=== PATIENT | female | born 1940 | race Two or more races ===

== ENCOUNTER 2016-04-28 12:09 | Inpatient (IN) | payer MEDICARE, MEDICAID ==
[2016-04-28 12:46] VITALS: BP 107/61
[2016-04-28 13:02] LABS: HEMATOCRIT 35.1 % (35.0-45.0)
[2016-04-28 13:05] LABS: MEAN CORPUSCULAR HEMOGLOBIN 36.1 pg (27.0-31.0); MEAN CORPUSCULAR HGB CONC 34.2 pg (28.0-36.0); PLATELET COUNT 116 Th/cmm (150-400); RED BLOOD COUNT 3.33 Mil/cmm (3.80-5.20); RED CELL DISTRIBUTION WIDTH 18.8 % (11.5-20.0)
--- NOTE | 2016-04-28 13:06 | Diagnostic Imaging Report ---
Portable chest x-ray HISTORY: Pain The overall heart size is difficult to assess with portable technique in a poor inspiration. No acute focal pulmonary processes. A vascular catheter tip extends into the region of the right atrium. IMPRESSION: 1. No acute focal prominent processes 2. Vascular catheter extending into the region of the right atrium.
--- NOTE | 2016-04-28 13:10 | ED Physician Chart ---
Chief Complaint/HPI - Patient Information Date Seen:: 04/28/16 Time Seen:: 13:00 Chief Complaint:: ABDOMINAL PAIN History of Present Illness:: THIS IS A CHRONICALLY ILL 76 YO FEMALE SENT [facility] FOR AN EVALUATION OF HER PERSISTENT ABDOMINAL PAIN. SHE HAS NOT BEEN VOMITING OR HAVING DIARRHEA. THE PATIENT HAS A HISTORY OF DIABETES, AORTIC ANEURYSM WITHOUT RUPTURE,BLADDER CANCER. Allergies:: Allergies Allergy/AdvReac Type Severity Reaction Status Date / Time No Known Allergies Allergy Verified 04/28/16 12:27 Vitals:: Vital Signs - 8 hr 04/28/16 04/28/16 12:46 12:47 Temp 97.9 F HR 108 RR 18 BP 107/61 107/61 O2 Sat % 96 Historian:: Medical Records Review:: Nurse's Note Reviewed Review of Systems - Review of Systems General/Constitutional: Fever (THE PATIENT IS UNABLE TO GIVE AN ACCURATE REVIEW OF SYSTEMS.), No fever, No chills, Weight loss, Weakness, No diaphoresis, No edema, No loss of appetite Skin: No skin lesions, No rash, No bruising Head: No headache, No light-headedness Eyes: No loss of vision, No pain, No diplopia ENT: No earache, No nasal drainage, No sore throat, No tinnitus Neck: No neck pain, No swelling, No thyromegaly, No stiffness, No mass noted Cardio Vascular: No chest pain, No palpitations, No PND, No orthopnea, No edema Pulmonary: No SOB, No cough, No sputum, No wheezing GI: No nausea, No vomiting, No diarrhea, No pain, No melena, No hematochezia, No constipation, No hematemesis G/U: No dysuria, No frequency, No hematuria Musculoskeletal: No bone or joint pain, No back pain, No muscle pain Endocrine: No polyuria, No polydipsia Psychiatric: No prior psych history, No depression, No anxiety, No suicidal ideation Hematopoietic: No bruising, No lymphadenopathy Allergic/Immuno: No urticaria, No angioedema Neurological: No syncope, No focal symptoms, No weakness, No paresthesia, No headache, No seizure, No dizziness, No confusion, No vertigo Past Medical History - Past Medical History Obtainable: Yes Past Medical History: HTN, DM, CAD, Asthma/COPD, PUD/GERD, Arthritis, Dementia Family History: None Social History: Non Smoker, No Alcohol, No Drug Use Surgical History: None Psychiatricy History: Dementia Medication: Reviewed Family Medical History - Family Member Maternal History Unknown: Yes Ethnicity: Mother History Unknown: Yes Ethnicity: Living Status: Unknown Physical Exam - Physical Examination General/Constitutional: Awake, Well-developed, well-nourished, Alert, No distress, GCS 15, Non-toxic appearing, Ambulatory Head: Atraumatic Eyes: Lids, conjuctiva normal, PERRL, EOMI Skin: Nl inspection, No rash, No skin lesions, No ecchymosis, Well hydrated, No lymphadenopathy ENMT: External ears, nose nl, Nasal exam nl, Lips, teeth, gums nl Neck: Nontender, Full ROM w/o pain, No JVD, No nuchal rigidity, No bruit, No mass, No stridor Respiratory: Nl effort/Exclusion, Clear to Auscultation, No Wheeze/Rhonchi/Rales Cardio Vascular: RRR, No murmur, gallop, rubs, NL S1 S2 GI: No tenderness/rebounding/guarding, No organomegaly, No hernia, Normal BS's, Nondistended, No mass/bruits, No McBurney tenderness : No CVA tenderness Extremities: No tenderness or effusion, Full ROM, normal strength in all extremities, No edema, Normal digits & nails Neuro/Psych: Alert/oriented, DTR's symmetric, Normal sensory exam, Normal motor strength, Judgement/insight normal, Mood normal, Normal gait, No focal deficits Misc: normal gait, Normal back, No paraspinal tenderness Labs/Radiology/EKG Results - Lab Results Results: Abnormal Lab Results 04/28/16 04/28/16 04/28/16 12:47 12:47 12:47 WBC 22.5 H* RBC 3.33 L Hgb 12.0 Hct 35.1 MCV 105.4 H MCH 36.1 H MCHC Differential 34.2 RDW 18.8 Plt Count 116 L MPV 9.0 PT 11.0 INR 1.10 PTT (Actin FS) 25.6 L Triglycerides 216 H Cholesterol 86 LDL Cholesterol Direct 19 L HDL Cholesterol 30 - Radiology Results Results: NO ACUTE DISEASE - EKG Interpretations EKG Time:: 13:00 Rhythm: NSR [place]: RIGHT AXIS Rate: 97 ED Septic Shock - . Is Septic Shock (SBP<90, OR Lactate>4 mmol\L) present?: No - <6hrs of presentation: Vital Signs: Vital Signs - 8 hr 04/28/16 04/28/16 12:46 12:47 Temp 97.9 F HR 108 RR 18 BP 107/61 107/61 O2 Sat % 96 Reassessment (Disposition) - Reassessment Reassessment Condition:: Unchanged - Diagnosis Diagnosis:: ABDOMINAL PAIN HYPOKALEMIA LEUCOCYTOSIS - Patient Disposition Admitting Medical Physician:: Gaby Mairee Condition at Disposition:: Unchanged
[2016-04-28 13:13] LABS: INR 1.1 (0.5-1.4)
[2016-04-28 13:14] LABS: MEAN CELL VOLUME 105.4 fl (81-100); WHITE BLOOD COUNT 22.5 Th/cmm (4.8-10.8)
[2016-04-28 13:17] LABS: ALKALINE PHOSPHATASE 79 U/L (34-104); ANION GAP 18.7 (7.0-16.0); BILIRUBIN,TOTAL 0.5 mg/dL (0.3-1.0); BUN - UREA NITROGEN 60 mg/dL (7-25); BUN/CREATININE RATIO 16.2; CALCIUM SERUM 8.2 mg/dL (8.6-10.3); CARBON DIOXIDE 21.8 mEq/L (21.0-31.0); CHLORIDE 101 mEq/L (98-107); CHOLESTEROL 86 mg/dL (<200); CREATININE - SERUM 3.7 mg/dL (0.6-1.2); GLUCOSE 43 mg/dL (70-105); SGOT 23 U/L (13-39); SGPT/ALT 17 U/L (7-52); SODIUM SERUM 139 mEq/L (136-145); TRIGLYCERIDES 216 mg/dL (<150)
[2016-04-28 13:26] LABS: POTASSIUM SERUM 2.5 mEq/L (3.5-5.1)
[2016-04-28] MEDS ORDERED: Potassium Chloride 20 mEq ER Tab PO ONE ×2 (13:31→13:38)
[2016-04-28 13:51] LABS: TOTAL CELLS COUNTED 100
[2016-04-28 13:52] LABS: BAND NEUTROPHILE 36 % (0-10); EOSINOPHIL 0 % (0-5); NEUTROPHILS 56 % (40-80); PLATELET ESTIMATE DECREASED PLATELETS (NORMAL); PLATELET MORPHOLOGY NORMAL (NORMAL)
[2016-04-28 13:53] LABS: ANISOCYTOSIS 1+; POLYCHROMASIA 3+
--- NOTE | 2016-04-28 15:27 | Diagnostic Imaging Report ---
CT scan abdomen and pelvis without intravenous contrast HISTORY: Pain Total DLP equals 262 CTDI equals 6.3 Axial sections were obtained from the xiphoid process down to the pubic symphysis. The exam demonstrates faint infiltrate in the left lower lobe along with pleural thickening. Changes may be chronic. However, pneumonia cannot be excluded. The liver appears generous in size. There is a dilated gallbladder with haziness about the gallbladder margins. Pericholecystic fluid cannot be excluded. If necessary, an ultrasound exam may provide additional assessment. Residual radiopaque contrast noted in the duodenum. The spleen appears normal. No focal abnormality seen within the pancreas. The right kidney appears normal. There is a decrease size of left kidney. There is aneurysmal dilatation of the abdominal aorta that extends from the level of the renal vasculature down to the level of the bifurcation. Maximum diameter equals 4.0 cm. Suggestion of intraluminal calcification that may be associated with segmental chronic dissection. The exam of the pelvis demonstrates preservation of normal fat planes. No abnormal masses or abnormal fluid collections. No definite abnormality seen in the region of the appendix. Evaluation of the bowel is limited due to the absence of oral/bowel contrast. Severe degenerative changes noted throughout the spine along with compression involving the body of L4. IMPRESSION: 1. Abdominal aortic aneurysm as described above with a maximum diameter of approximately 4.0 cm. Questionable changes chronic segmental dissection. Associated at the carotid vascular changes 2. Dilated gallbladder with questionable pericholecystic fluid. If necessary, an ultrasound exam may provide for further assessment 3. Diminished size of the left kidney 4. Compression fracture involving the body of L4 5. Infiltrate left lower lobe with pleural thickening in the left lower hemithorax. Findings may be chronic. Pneumonia cannot be excluded. Clinical correlation is needed.
[2016-04-28] MEDS ORDERED: INSULIN HUMAN REGULAR 100 UNITS/ML UNIT SUBQ ONE (18:55)
[2016-04-28] MEDS ORDERED: DARBEPOETIN ALFA IN POLYSORBAT 100 MCG IJ SCH (19:30)
[2016-04-28] MEDS ORDERED: INSULIN ASPART SLIDING SCALE 100 UNITS/ML UNIT SUBQ SCH (21:00)
[2016-04-28] MEDS: KCL 20mEq/100mL Premix 20 MEQ/100 ML PIGGYBACK IV SCH (21:16)
[2016-04-28] MEDS: metroNIDAZOLE 500mg/NS 100mL 500 MG/100 ML BAG IV SCH (22:56)
[2016-04-28] MEDS: Atorvastatin Calcium 10 MG TAB PO SCH (22:56)
[2016-04-28] MEDS ORDERED: GLUCAGON HCl 1 MG KIT IM PRN ×2 (23:05→23:20)
[2016-04-28] MEDS: Dextrose 50% 50 mL Abboject IVP PRN (23:16)
[2016-04-28] MEDS ORDERED: Dextrose 10% 1,000 ML IV SCH (23:30)
[2016-04-28] MEDS ORDERED: Dextrose 10% 1,000 ML IV ONE (23:40)
[2016-04-28] MEDS: Vancomycin HCL 250 mg /10mL UDC PO SCH (23:44)
[2016-04-29] MEDS: KCL 20mEq/100mL Premix 20 MEQ/100 ML PIGGYBACK IV SCH (01:56)
[2016-04-29] MEDS: Vancomycin HCL 250 mg /10mL UDC PO SCH ×3 (02:48→17:03)
[2016-04-29] MEDS ORDERED: Morphine Sulfate 2 mg/mL 1mL Syr IVP PRN (03:58)
[2016-04-29] MEDS ORDERED: Piperacillin Sodium/Tazobact 2.25 gm Vial IV ONE (04:54)
[2016-04-29] MEDS ORDERED: Piperacillin/Tazobact 2.25 gm in 0.9% NS 50 ML IV ONE (05:00)
[2016-04-29] MEDS: metroNIDAZOLE 500mg/NS 100mL 500 MG/100 ML BAG IV SCH ×3 (05:01→20:37)
[2016-04-29] MEDS ORDERED: Morphine Sulfate 2 mg/mL 1mL Syr IVP STA (07:45)
[2016-04-29] MEDS ORDERED: INSULIN ASPART SLIDING SCALE 100 UNITS/ML UNIT SUBQ SCH ×2 (08:15→11:30)
[2016-04-29 08:58] LABS: HEMOGLOBIN 10.8 gm/dL (11.7-16.1); MEAN CORPUSCULAR HEMOGLOBIN 35.9 pg (27.0-31.0); MEAN CORPUSCULAR HGB CONC 33.6 pg (28.0-36.0); MEAN PLATELET VOLUME 9.1 fl; RED CELL DISTRIBUTION WIDTH 19.5 % (11.5-20.0)
[2016-04-29] MEDS ORDERED: Pantoprazole 40 mg EC Tab PO SCH (09:00)
[2016-04-29] MEDS: NIFEdipine 30 mg ER Tab PO SCH ×2 (09:00→09:36)
[2016-04-29] MEDS ORDERED: Aspirin 81mg Chewable Tab PO SCH (09:00)
[2016-04-29 09:14] LABS: WHITE BLOOD COUNT 41.1 Th/cmm (4.8-10.8)
--- NOTE | 2016-04-29 09:29 | General Progress Note ---
Subjective - Review of Systems Service Date: 04/29/16 Subjective: consult dictated CT scan - dilated GB with pericholecystic fluid WBC high with bands PE tender RUQ plan: GB ultrasound Objective - Results Result Diagrams: 04/29/16 08:15 04/28/16 12:47 Recent Labs: Laboratory Last Values WBC 41.1 Th/cmm (4.8-10.8) H* D 04/29/16 08:15 RBC 3.00 Mil/cmm (3.80-5.20) L 04/29/16 08:15 Hgb 10.8 gm/dL (11.7-16.1) L 04/29/16 08:15 Hct 32.0 % (35.0-45.0) L 04/29/16 08:15 MCV 105.4 fl (81-100) H 04/28/16 12:47 MCH 35.9 pg (27.0-31.0) H 04/29/16 08:15 MCHC Differential 33.6 pg (28.0-36.0) 04/29/16 08:15 RDW 19.5 % (11.5-20.0) 04/29/16 08:15 Plt Count 116 Th/cmm (150-400) L 04/28/16 12:47 MPV 9.1 fl 04/29/16 08:15 Band Neutrophils % 36 % (0-10) H 04/28/16 12:47 Neutrophils (Manual) 56 % (40-80) 04/28/16 12:47 Lymphocytes 5 % (20-50) L 04/28/16 12:47 Monocytes 3 % (2-10) 04/28/16 12:47 Eosinophils 0 % (0-5) 04/28/16 12:47 Platelet Estimate DECREASED PLATELETS (NORMAL) 04/28/16 12:47 Platelet Morphology NORMAL (NORMAL) 04/28/16 12:47 Polychromasia 3+ 04/28/16 12:47 Anisocytosis 1+ 04/28/16 12:47 Macrocytosis 1+ 04/28/16 12:47 RBC Morph Micro Appear ABNORMAL (NORMAL) 04/28/16 12:47 PT 11.0 SECONDS (9.5-11.5) 04/28/16 12:47 INR 1.10 (0.5-1.4) 04/28/16 12:47 PTT (Actin FS) 25.6 SECONDS (26.0-38.0) L 04/28/16 12:47 Sodium 139 mEq/L (136-145) 04/28/16 12:47 Potassium 2.5 mEq/L (3.5-5.1) L* 04/28/16 12:47 Chloride 101 mEq/L (98-107) 04/28/16 12:47 Carbon Dioxide 21.8 mEq/L (21.0-31.0) 04/28/16 12:47 Anion Gap 18.7 (7.0-16.0) H 04/28/16 12:47 BUN 60 mg/dL (7-25) H 04/28/16 12:47 Creatinine 3.7 mg/dL (0.6-1.2) H 04/28/16 12:47 Est GFR ( Amer) TNP 04/28/16 12:47 Est GFR (Non-Af Amer) TNP 04/28/16 12:47 BUN/Creatinine Ratio 16.2 04/28/16 12:47 Glucose 294 mg/dL (70-105) H 04/28/16 23:16 POC Glucose 245 MG/DL (70 - 105) H 04/29/16 06:36 Hemoglobin A1c % 6.8 % (4.0-6.0) H 04/28/16 12:47 Calcium 8.2 mg/dL (8.6-10.3) L 04/28/16 12:47 Total Bilirubin 0.5 mg/dL (0.3-1.0) 04/28/16 12:47 AST 23 U/L (13-39) 04/28/16 12:47 ALT 17 U/L (7-52) 04/28/16 12:47 Alkaline Phosphatase 79 U/L (34-104) 04/28/16 12:47 Troponin I 0.21 ng/mL (0.01-0.05) H* 04/28/16 12:47 Total Protein 5.3 gm/dL (6.0-8.3) L 04/28/16 12:47 Albumin 2.7 gm/dL (3.7-5.3) L 04/28/16 12:47 Globulin 2.6 gm/dL 04/28/16 12:47 Albumin/Globulin Ratio 1.0 (1.0-1.8) 04/28/16 12:47 Triglycerides 216 mg/dL (<150) H 04/28/16 12:47 Cholesterol 86 mg/dL (<200) 04/28/16 12:47 LDL Cholesterol Direct 19 mg/dL (75-193) L 04/28/16 12:47 HDL Cholesterol 30 mg/dL (23-92) 04/28/16 12:47 TSH 1.28 uIU/ml (0.34-5.60) 04/28/16 12:47 - Physical Exam Vitals and I&O: Vital Signs Temp 97.8 F 04/29/16 04:00 Pulse 100 04/29/16 04:00 Resp 21 04/29/16 04:00 BP 122/64 04/29/16 04:00 Pulse Ox 96 04/29/16 06:00 Intake & Output 04/28/16 04/29/16 04/29/16 18:59 06:59 18:59 Intake Total 320 Output Total 1 Balance 319 Intake: Intake, IV Amount 200 KCL 20mEq/100mL Premix 20 100 meq In 100 ml @ 50 mls/ hr IV Q2H [facility] Rx#: [id number] metroNIDAZOLE 500mg/NS 100 100mL 500 mg In 100 ml @ 100 mls/hr IV Q8HR [facility] Rx #:[id number] Oral 120 Output: Stool 1 Other: # Voids 2 Stool Characteristics Liquid Black Green Active Medications: Current Medications Aspirin (Aspirin Chewable) 81 mg PO DAILY [facility] Stop: 06/28/16 08:59 Atorvastatin Calcium (Lipitor) 20 mg PO HS [facility] Stop: 06/27/16 20:59 Last Admin: 04/28/16 22:56 Dose: 20 mg Calcium Carbonate (Calcium Carb) 600 mg PO DAILY [facility] Stop: 06/28/16 08:59 Dextrose (D50w) 50 ml IVP PRN PRN PRN Reason: Blood Glucose less than 70 Stop: 06/27/16 23:04 Last Admin: 04/28/16 23:16 Dose: 50 ml Dextrose (Glutose 40%) 18.75 gm PO PRN PRN PRN Reason: Blood Glucose less than 70 Stop: 06/27/16 23:04 Epoetin Deo (Epogen) 5,000 units SUBQ TuThSa [facility] Stop: 06/28/16 09:29 Glucagon (Glucagen) 1 mg IM PRN PRN PRN Reason: HYPOGLYCEMIA Stop: 06/27/16 23:19 Last Admin: 04/28/16 23:39 Dose: 1 mg Metronidazole (Flagyl) 500 mg in 100 mls @ 100 mls/hr IV Q8HR [facility] Stop: 06/27/16 20:59 Last Admin: 04/29/16 05:01 Dose: 100 mls/hr Piperacillin Sod/Tazobactam (Sod 2.25 gm/ Sodium Chloride) 50 mls @ 100 mls/hr IV Q8HR [facility] Stop: 06/28/16 12:59 Dextrose/Sodium Chloride (D5-0.45ns) 1,000 mls @ 50 mls/hr IV .Q20H [facility] Stop: 06/28/16 07:58 Insulin Aspart (Novolog Insulin Sliding Scale) 0 units SUBQ Q4HR [facility] PRN Reason: Protocol Stop: 06/28/16 08:14 Metoprolol Tartrate (Lopressor) 25 mg PO HS [facility] Stop: 06/27/16 20:59 Last Admin: 04/28/16 22:57 Dose: Not Given Midodrine (Proamatine) 5 mg PO DAILY [facility] Stop: 06/28/16 08:59 Mirtazapine (Remeron) 15 mg PO HS [facility] PRN Reason: Protocol Stop: 06/27/16 20:59 Last Admin: 04/28/16 22:56 Dose: 15 mg Miscellaneous (Darbepoetin Deo In Polysorbat [Aranesp]) 100 mcg IJ QTHUR [facility] Stop: 06/27/16 19:29 Miscellaneous (Zosyn Iv Per Pharmacy) 1 ea [facility] PRN PRN PRN Reason: PROTOCOL Stop: 06/28/16 03:59 Morphine Sulfate (Morphine) 2 mg IVP Q3H PRN PRN Reason: Severe Pain Stop: 06/28/16 10:49 Nifedipine (Procardia Xl) 30 mg PO DAILY [facility] Stop: 06/28/16 08:59 Ondansetron HCl (Zofran) 4 mg IV Q4H PRN PRN Reason: Nausea / Vomiting Stop: 06/28/16 03:58 Pantoprazole Sodium (Protonix) 40 mg PO DAILY [facility] Stop: 06/28/16 08:59 Prednisone (Deltasone) 20 mg PO DAILY [facility] Stop: 06/28/16 08:59 Vancomycin HCl (Vancomycin Oral) 250 mg PO Q6HR [facility] Stop: 06/27/16 18:54 Last Admin: 04/29/16 02:48 Dose: 250 mg
[2016-04-29] MEDS ORDERED: Epoetin Alfa 20000 Units/mL Vial SUBQ SCH (09:30)
[2016-04-29 09:39] LABS: ANION GAP 27.2 (7.0-16.0); BUN - UREA NITROGEN 73 mg/dL (7-25); BUN/CREATININE RATIO 16.6; CALCIUM SERUM 7.7 mg/dL (8.6-10.3); CHLORIDE 105 mEq/L (98-107); GLUCOSE 218 mg/dL (70-105); SODIUM SERUM 138 mEq/L (136-145)
[2016-04-29] MEDS: D5-0.45NS 1,000 ML IV SCH (09:40)
--- NOTE | 2016-04-29 09:56 | Consultation ---
GASTROENTEROLOGY CONSULTATION REFERRING PHYSICIAN: Will Guillen M.D. REASON FOR CONSULTATION: Abdominal pain. HISTORY OF PRESENT ILLNESS: A 76-year-old female with a history of diabetes mellitus, bladder cancer, abdominal aortic aneurysm with possible chronic dissection admitted for lower abdominal pain from a custodial. There has been no witnessed nausea, vomiting or constipation. There was possibly some diarrhea. There may have been a history of C. diff colitis. The patient was started on broad spectrum antibiotics. PAST MEDICAL HISTORY: As above, also notable for end-stage renal disease, hemodialysis dependent, diabetes mellitus and bladder cancer. ALLERGIES: None. MEDICATIONS: Zosyn, Flagyl, baby aspirin, Lipitor, calcium, Lopressor, midodrine, Remeron, morphine p.r.n., Procardia, prednisone and oral vancomycin. SOCIAL HISTORY: [facility] resident. No known tobacco, alcohol or drugs. FAMILY HISTORY: Noncontributory. REVIEW OF SYSTEMS: A comprehensive 12-point review of system was conducted and is only positive for the signs and symptoms present in history of present illness. PHYSICAL EXAMINATION: VITAL SIGNS: Temperature of 97.8, blood pressure 122/64, pulse of 100, respirations 21, O2 sat 96%. GENERAL: The patient is well-developed elderly female in no acute distress. HEENT: Sclerae nonicteric. Oropharynx is clear. CARDIOVASCULAR: Regular rate and rhythm. LUNGS: Clear to auscultation bilaterally. ABDOMEN: Soft. Mild to moderate lower abdominal tenderness to palpation without rebound or guarding. No hepatomegaly is appreciated. EXTREMITIES: No clubbing, cyanosis or edema. RECTAL: Deferred. LABORATORY DATA AND IMAGING: WBC 22.5, hemoglobin 12, platelet count is 116. INR 1.0, creatinine 3.7. Liver enzymes normal. Troponin 0.2. TSH normal. CT of the abdomen and pelvis showing chronic changes, but nothing acute. Also, gallstones and abdominal aortic aneurysm identified without obvious rupture. ASSESSMENT: 1. Abdominal pain, rule out mesenteric ischemia versus abdominal aortic aneurysm versus symptomatic gallstones or cholecystitis versus colitis. 2. Abdominal aortic aneurysm with possible chronic dissection. 3. Leukocytosis, rule out sepsis. 4. Possible Clostridium difficile colitis. 5. History of diabetes mellitus, bladder cancer and end-stage renal disease, hemodialysis dependent. RECOMMENDATIONS: 1. Check stool C. diff. 2. Zosyn and Flagyl. 3. Probiotics. 4. Protonix and Zofran. 5. Follow up labs. 6. Pain control measures. 7. Check abdominal ultrasound. 8. Surgical evaluation. Thank you, Dr. Will Guillen for involving us in the care of your patient. Any further questions, please call us. JOB# [id number]
[2016-04-29 10:36] LABS: CARBON DIOXIDE 10.6 mEq/L (21.0-31.0)
[2016-04-29 10:37] LABS: CREATININE - SERUM 4.4 mg/dL (0.6-1.2)
[2016-04-29 10:38] LABS: POTASSIUM SERUM 4.8 mEq/L (3.5-5.1)
[2016-04-29] MEDS: Morphine Sulfate 2 mg/mL 1mL Syr IVP PRN ×2 (11:48→17:35)
[2016-04-29 11:49] LABS: PLATELET COUNT 50 Th/cmm (150-400)
[2016-04-29 11:53] LABS: BAND NEUTROPHILE 33 % (0-10); METAMYELOCYTE 6 % (0-0); MYELOCYTE 1 %; NEUTROPHILS 45 % (40-80); TOTAL CELLS COUNTED 100
[2016-04-29 11:54] LABS: ANISOCYTOSIS 1+; PLATELET ESTIMATE DECREASED PLATELETS (NORMAL); PLATELET MORPHOLOGY GIANT PLATELETS SEEN (NORMAL); POLYCHROMASIA 2+
[2016-04-29] MEDS: INSULIN ASPART SLIDING SCALE 100 UNITS/ML UNIT SUBQ SCH ×3 (12:00→20:34)
[2016-04-29] MEDS ORDERED: Piperacillin/Tazobact 2.25 gm in 0.9% NS 50 ML IV SCH (13:00)
--- NOTE | 2016-04-29 13:18 | Consultation ---
REFERRING PHYSICIAN: Will Guillen M.D. REASON FOR CONSULTATION: Abdominal pain. Thank you for referring this patient to me. HISTORY OF PRESENT ILLNESS: This is a 76-year-old female admitted through the Emergency Room because of abdominal pain. The patient claims she has no vomiting or diarrhea. On further questioning today, the patient claims that she has had pain in this region in the epigastric and right upper portion for several months. The veracity of this is not confirmed, however. PAST MEDICAL HISTORY: Includes hypertension, diabetes mellitus, coronary artery disease, COPD, GERD and dementia. LABORATORY STUDIES: On this admission shows WBC at 22,500, hemoglobin 12.0, platelet count slightly low at 116,000, bands 36%. The potassium is low at 2.5. BUN 60, creatinine 3.7. Hemoglobin A1c is slightly high at 6.8. Troponins elevated to 0.21. The triglycerides high at 216, cholesterol low at 86, LDL is 19, HDL is 30. The patient underwent a CT scan of the abdomen and pelvis and this shows 4 cm abdominal aortic aneurysm, which apparently has been there for some time, compression fracture at L4. There is a dilated gallbladder, questionable pericholecystic fluid. PHYSICAL EXAMINATION: GENERAL: The patient is awake, but information is difficult to assess. She is rather asthenic. ABDOMEN: There appears to be tenderness in the right upper quadrant. Abdomen appears to be tight and the abdominal aneurysm is not palpable. IMPRESSION: 1. Questionable calculus cholecystitis. 2. Abdominal aortic aneurysm, apparently stable in size and asymptomatic. 3. Elevated troponins, etiology to be determined. RECOMMENDATION AND PLAN: We will order ultrasound of the gallbladder and recommend treatment as needed. Thank you for this consultation. JOB# [id number]
[2016-04-29 13:28] LABS: MEAN CELL VOLUME 106.8 fl (81-100)
--- NOTE | 2016-04-29 14:05 | Consultation ---
Consult Note - Consult Note Service Date: 04/29/16 Consult Note: PHYSICIAN Consultation Note: Date of Admission: 04/28/16 Purpose of Consultation: Leukocytosis. Chief Complaint: abdominal pain, chronic, with History of Present Illness: Patient FRANCIE RAI was admitted to location Intensive Care Unit with SEPSIS. patient is 76 Y female with history of DM2, HTN, CAD, COPD, AAA, bladder ca presented to hospital for abdominal pain, which is chronic in nature. She has visited [facility] times recently and offered no intervention for her AAA, as she had been high risk for surgery. Now she has small wound in her right big toe distally, with cyanotic changes. O initial evaluation, her temperature was 97.9 degree F and WBC Count was 22,500 with 36% bands. Today, her WBC count went up to 41,100 with 33% bands. ID consult was called for further antibiotic management. Meanwhile sha was started on vanco IV and zosyn. CT scan of abdomen and pelvis revealed dilated GB with prericholecytic fluid, and pneumonia. Allergies Allergy/AdvReac Type Severity Reaction Status Date / Time No Known Allergies Allergy Verified 04/28/16 12:27 Vital Signs Temp 96.7 F 04/29/16 12:00 Pulse 92 04/29/16 12:00 Resp 18 04/29/16 12:00 BP 128/56 04/29/16 12:00 Pulse Ox 93 04/29/16 12:00 Intake & Output 04/28/16 04/29/16 04/29/16 18:59 06:59 18:59 Intake Total 420 Output Total 1 Balance 419 Intake: Intake, IV Amount 300 KCL 20mEq/100mL Premix 20 100 meq In 100 ml @ 50 mls/ hr IV Q2H PAULA Rx#: [id number] metroNIDAZOLE 500mg/NS 200 100mL 500 mg In 100 ml @ 100 mls/hr IV Q8HR PAULA Rx #:[id number] Oral 120 Output: Stool 1 Other: # Voids 2 Stool Characteristics Liquid Black Green Laboratory Results - last 24 hr 04/28/16 04/28/16 04/28/16 19:45 23:16 23:33 WBC Corrected WBC (auto) RBC Hgb Hct MCV MCH MCHC Differential RDW Plt Count MPV Band Neutrophils % Neutrophils (Manual) Lymphocytes Monocytes Metamyelocytes Myelocytes Nucleated RBCs Platelet Estimate Platelet Morphology Polychromasia Anisocytosis Macrocytosis RBC Morph Micro Appear Sodium Potassium Chloride Carbon Dioxide Anion Gap BUN Creatinine Est GFR ( Amer) Est GFR (Non-Af Amer) BUN/Creatinine Ratio Glucose 294 H POC Glucose 120 H 71 Calcium 04/29/16 04/29/16 04/29/16 00:34 01:43 02:26 WBC Corrected WBC (auto) RBC Hgb Hct MCV MCH MCHC Differential RDW Plt Count MPV Band Neutrophils % Neutrophils (Manual) Lymphocytes Monocytes Metamyelocytes Myelocytes Nucleated RBCs Platelet Estimate Platelet Morphology Polychromasia Anisocytosis Macrocytosis RBC Morph Micro Appear Sodium Potassium Chloride Carbon Dioxide Anion Gap BUN Creatinine Est GFR ( Amer) Est GFR (Non-Af Amer) BUN/Creatinine Ratio Glucose POC Glucose 196 H 251 H 233 H Calcium 04/29/16 04/29/16 04/29/16 03:35 05:25 06:36 WBC Corrected WBC (auto) RBC Hgb Hct MCV MCH MCHC Differential RDW Plt Count MPV Band Neutrophils % Neutrophils (Manual) Lymphocytes Monocytes Metamyelocytes Myelocytes Nucleated RBCs Platelet Estimate Platelet Morphology Polychromasia Anisocytosis Macrocytosis RBC Morph Micro Appear Sodium Potassium Chloride Carbon Dioxide Anion Gap BUN Creatinine Est GFR ( Amer) Est GFR (Non-Af Amer) BUN/Creatinine Ratio Glucose POC Glucose 215 H 190 H 245 H Calcium 04/29/16 04/29/16 04/29/16 08:15 08:15 09:14 WBC 41.1 H* D Corrected WBC (auto) 37.0 H* RBC 3.00 L Hgb 10.8 L Hct 32.0 L MCV 106.8 H MCH 35.9 H MCHC Differential 33.6 RDW 19.5 Plt Count 50 L D MPV 9.1 Band Neutrophils % 33 H Neutrophils (Manual) 45 Lymphocytes 7 L Monocytes 8 Metamyelocytes 6 H Myelocytes 1 Nucleated RBCs 11.0 H Platelet Estimate DECREASED PLATELETS Platelet Morphology GIANT PLATELETS SEEN Polychromasia 2+ Anisocytosis 1+ Macrocytosis 1+ RBC Morph Micro Appear ABNORMAL Sodium 138 Potassium 4.8 D Chloride 105 Carbon Dioxide 10.6 L Anion Gap 27.2 H BUN 73 H Creatinine 4.4 H* Est GFR ( Amer) TNP Est GFR (Non-Af Amer) TNP BUN/Creatinine Ratio 16.6 Glucose 218 H POC Glucose 191 H Calcium 7.7 L 04/29/16 11:59 WBC Corrected WBC (auto) RBC Hgb Hct MCV MCH MCHC Differential RDW Plt Count MPV Band Neutrophils % Neutrophils (Manual) Lymphocytes Monocytes Metamyelocytes Myelocytes Nucleated RBCs Platelet Estimate Platelet Morphology Polychromasia Anisocytosis Macrocytosis RBC Morph Micro Appear Sodium Potassium Chloride Carbon Dioxide Anion Gap BUN Creatinine Est GFR ( Amer) Est GFR (Non-Af Amer) BUN/Creatinine Ratio Glucose POC Glucose 169 H Calcium Home Medication Medication Instructions Recorded Type Amoxicillin/Potassium Clav 1 each PO BID 04/28/16 History [Amox-Clav 500-125 mg Tablet] Ascorbic Acid [Vitamin C] 500 mg PO DAILY 04/28/16 History Aspirin [Aspirin Chewable] 81 mg PO DAILY 04/28/16 History Atorvastatin Calcium [Lipitor] 20 mg PO HS 04/28/16 History Calcium Carbonate 600 mg PO DAILY 04/28/16 History Cholecalciferol (Vitamin D3) 5,000 unit PO DAILY 04/28/16 History [Vitamin D3] Darbepoetin Deo in Polysorbat 100 mcg IJ QTHUR 04/28/16 History [Aranesp] Ferrous Sulfate [Iron] 325 mg PO BID 04/28/16 History Furosemide [Lasix] 20 mg PO BID 04/28/16 History Insulin Detemir [Levemir] 4 unit SQ QAM 04/28/16 History Insulin Lispro [Humalog] 100 unit SQ TID 04/28/16 History Megestrol Acetate [Megace] 400 mg PO BID 04/28/16 History Metoprolol Tartrate [Lopressor] 25 mg PO HS 04/28/16 History Midodrine HCl 5 mg PO DAILY 04/28/16 History Mirtazapine [Mirtazapine*] 15 mg PO HS 04/28/16 History NIFEdipine [Procardia XL] 30 mg PO DAILY 04/28/16 History Pantoprazole [Protonix] 40 mg PO DAILY 04/28/16 History Prednisone [Deltasone] 20 mg PO DAILY 04/28/16 History Saccharomyces Boulardii [Florastor] 250 mg PO BID 04/28/16 History Vit B Cmplx 3/FA/Vit C/Biotin 1 tab PO DAILY 04/28/16 History [Nephro-Desiree Rx] Current Medications Generic Name Dose Route Start Last Admin Trade Name Freq PRN Reason Stop Dose Admin Aspirin 81 mg 04/29/16 09:00 04/29/16 09:32 Aspirin Chewable PO 06/28/16 08:59 81 mg DAILY PAULA Administration Atorvastatin Calcium 20 mg 04/28/16 21:00 04/28/16 22:56 Lipitor PO 06/27/16 20:59 20 mg HS PAULA Administration Calcium Carbonate 600 mg 04/29/16 09:00 04/29/16 12:08 Calcium Carb PO 06/28/16 08:59 600 mg DAILY PAULA Administration Dextrose 50 ml 04/28/16 23:05 04/28/16 23:16 D50w IVP 06/27/16 23:04 50 ml PRN PRN Administration Blood Glucose less than 70 Dextrose 18.75 gm 04/28/16 23:05 Glutose 40% PO 06/27/16 23:04 PRN PRN Blood Glucose less than 70 Epoetin Deo 5,000 units 04/29/16 09:30 Epogen SUBQ 06/28/16 09:29 TuThSa PAULA Glucagon 1 mg 04/28/16 23:20 04/28/16 23:39 Glucagen IM 06/27/16 23:19 1 mg PRN PRN Administration HYPOGLYCEMIA Metronidazole 500 mg in 100 mls @ 100 mls/hr 04/28/16 21:00 04/29/16 12:14 Flagyl IV 06/27/16 20:59 100 mls/hr Q8HR PAULA Administration Piperacillin Sod/Tazobactam 50 mls @ 100 mls/hr 04/29/16 13:00 04/29/16 12:13 Sod 2.25 gm/ Sodium Chloride IV 06/28/16 12:59 100 mls/hr Q8HR PAULA Administration Dextrose/Sodium Chloride 1,000 mls @ 50 mls/hr 04/29/16 07:59 04/29/16 09:40 D5-0.45ns IV 06/28/16 07:58 50 mls/hr .Q20H PAULA Administration Insulin Aspart 0 units 04/29/16 10:07 04/29/16 12:00 Novolog Insulin Sliding Scale SUBQ 06/28/16 08:14 3 units Q4HR PAULA Administration Protocol Metoprolol Tartrate 25 mg 04/28/16 21:00 04/28/16 22:57 Lopressor PO 06/27/16 20:59 Not Given HS PAULA Midodrine 5 mg 04/29/16 09:00 04/29/16 09:36 Proamatine PO 06/28/16 08:59 5 mg DAILY PAULA Administration Mirtazapine 15 mg 04/28/16 21:00 04/28/16 22:56 Remeron PO 06/27/16 20:59 15 mg HS PAULA Administration Protocol Miscellaneous 100 mcg 04/28/16 19:30 Darbepoetin Deo In Polysorbat [Aranesp] IJ 06/27/16 19:29 QTHUR PAULA Miscellaneous 1 ea 04/29/16 04:00 Zosyn Iv Per Pharmacy 06/28/16 03:59 PRN PRN PROTOCOL Morphine Sulfate 2 mg 04/29/16 10:50 04/29/16 11:48 Morphine IVP 06/28/16 10:49 2 mg Q3H PRN Administration Severe Pain Nifedipine 30 mg 04/29/16 09:00 04/29/16 09:00 Procardia Xl PO 06/28/16 08:59 Not Given DAILY PAULA Ondansetron HCl 4 mg 04/29/16 03:59 Zofran IV 06/28/16 03:58 Q4H PRN Nausea / Vomiting Pantoprazole Sodium 40 mg 04/29/16 09:00 04/29/16 09:39 Protonix PO 06/28/16 08:59 40 mg DAILY PAULA Administration Prednisone 20 mg 04/29/16 09:00 04/29/16 09:39 Deltasone PO 06/28/16 08:59 20 mg DAILY PAULA Administration Vancomycin HCl 250 mg 04/28/16 18:55 04/29/16 12:25 Vancomycin Oral PO 06/27/16 18:54 250 mg Q6HR PAULA Administration Review of Systems: A 12 point ROS was reviewed with the pertinent positive and negatives noted in the HPI. Past Medical History CKD, COPD, CAD, HTN, DM2, Bladder CA. Social History Lives at the SNF, no history of smoking, alcohol or drug abuse. Family Medical History Noncontributory. Physical Exam: VITALS: as above. General: Comfortable, cachectic. No Acute Distress HEENT: Head is normocephalic, atraumatic on inspection. Oral cavity: moist, pink tongue. Eyes pallor is present. EOMI Bilaterally, PERRLA Bilaterally, Neck: Supple, no JVD. No use of accessory neck muscles. Respiratory: Clear to Auscultate Bilaterally. Cardio: +S1/S2 Auscultated, RRR, no murmurs/rubs/gallops noted. Abdominal: Soft, Nondistended, Nontender to palpation x 4 quadrants Extremities: No Edema noted in the lower extremities Neurological: Alert and Oriented x3, Cranial Nerves II-XII intact bilaterally, Gait Steady, No Focal Deficits noted. Assessment/Plan: 1. Leukocytosis. reactive versus cholecytitis. r/o pneumonia. 2. Pneumonia. 3. Cholecytitis. 4. AAA. 5. Gangrenous ulcer at the right big toe. 6. Abdominal pain 2/2 AAA. 7. PAD. 8. 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 Recommedations: Will continue vanco IV and change zosyn to meropenem. Sepsis w/u. Hida scan, adb u/S. check stool for Cdiff. Thank you, Signed, Cash Hernandez M.D. [id number]
[2016-04-29] MEDS ORDERED: Meropenem 500 MG in Sodium Chloride 0.9% 100 ML IV SCH (14:45)
--- NOTE | 2016-04-29 14:48 | Consultation ---
Consult Note - Consult Note Service Date: 04/29/16 Referring Physician: Will Guillen Consult Note: PHYSICIAN Consultation Note: Date of Admission: 04/28/16 Chief complaint: Abdominal pain. Reason for consultation: leukocytosis. History of Present Illness: Patient FRANCIE RAI was admitted to location Intensive Care Unit with SEPSIS. patient is 76 Y female with history of DM2, HTN, CAD, COPD, AAA, bladder ca presented to hospital for abdominal pain, which is chronic in nature. She has visited [facility] times recently and offered no intervention for her AAA, as she had been high risk for surgery. Now she has small wound in her right big toe distally, with cyanotic changes. O initial evaluation, her temperature was 97.9 degree F and WBC Count was 22,500 with 36% bands. Today, her WBC count went up to 41,100 with 33% bands. ID consult was called for further antibiotic management. Meanwhile sha was started on vanco IV and zosyn. CT scan of abdomen and pelvis revealed dilated GB with prericholecytic fluid, and pneumonia. Allergies Allergy/AdvReac Type Severity Reaction Status Date / Time No Known Allergies Allergy Verified 04/28/16 12:27 Vital Signs Temp 96.7 F 04/29/16 12:00 Pulse 92 04/29/16 12:00 Resp 18 04/29/16 12:00 BP 128/56 04/29/16 12:00 Pulse Ox 93 04/29/16 12:00 Intake & Output 04/28/16 04/29/16 04/29/16 18:59 06:59 18:59 Intake Total 420 Output Total 1 Balance 419 Intake: Intake, IV Amount 300 KCL 20mEq/100mL Premix 20 100 meq In 100 ml @ 50 mls/ hr IV Q2H PAULA Rx#: [id number] metroNIDAZOLE 500mg/NS 200 100mL 500 mg In 100 ml @ 100 mls/hr IV Q8HR PAULA Rx #:[id number] Oral 120 Output: Stool 1 Other: # Voids 2 Stool Characteristics Liquid Black Green Laboratory Results - last 24 hr 04/28/16 04/28/16 04/28/16 19:45 23:16 23:33 WBC Corrected WBC (auto) RBC Hgb Hct MCV MCH MCHC Differential RDW Plt Count MPV Band Neutrophils % Neutrophils (Manual) Lymphocytes Monocytes Metamyelocytes Myelocytes Nucleated RBCs Platelet Estimate Platelet Morphology Polychromasia Anisocytosis Macrocytosis RBC Morph Micro Appear Sodium Potassium Chloride Carbon Dioxide Anion Gap BUN Creatinine Est GFR ( Amer) Est GFR (Non-Af Amer) BUN/Creatinine Ratio Glucose 294 H POC Glucose 120 H 71 Calcium 04/29/16 04/29/16 04/29/16 00:34 01:43 02:26 WBC Corrected WBC (auto) RBC Hgb Hct MCV MCH MCHC Differential RDW Plt Count MPV Band Neutrophils % Neutrophils (Manual) Lymphocytes Monocytes Metamyelocytes Myelocytes Nucleated RBCs Platelet Estimate Platelet Morphology Polychromasia Anisocytosis Macrocytosis RBC Morph Micro Appear Sodium Potassium Chloride Carbon Dioxide Anion Gap BUN Creatinine Est GFR ( Amer) Est GFR (Non-Af Amer) BUN/Creatinine Ratio Glucose POC Glucose 196 H 251 H 233 H Calcium 04/29/16 04/29/16 04/29/16 03:35 05:25 06:36 WBC Corrected WBC (auto) RBC Hgb Hct MCV MCH MCHC Differential RDW Plt Count MPV Band Neutrophils % Neutrophils (Manual) Lymphocytes Monocytes Metamyelocytes Myelocytes Nucleated RBCs Platelet Estimate Platelet Morphology Polychromasia Anisocytosis Macrocytosis RBC Morph Micro Appear Sodium Potassium Chloride Carbon Dioxide Anion Gap BUN Creatinine Est GFR ( Amer) Est GFR (Non-Af Amer) BUN/Creatinine Ratio Glucose POC Glucose 215 H 190 H 245 H Calcium 04/29/16 04/29/16 04/29/16 08:15 08:15 09:14 WBC 41.1 H* D Corrected WBC (auto) 37.0 H* RBC 3.00 L Hgb 10.8 L Hct 32.0 L MCV 106.8 H MCH 35.9 H MCHC Differential 33.6 RDW 19.5 Plt Count 50 L D MPV 9.1 Band Neutrophils % 33 H Neutrophils (Manual) 45 Lymphocytes 7 L Monocytes 8 Metamyelocytes 6 H Myelocytes 1 Nucleated RBCs 11.0 H Platelet Estimate DECREASED PLATELETS Platelet Morphology GIANT PLATELETS SEEN Polychromasia 2+ Anisocytosis 1+ Macrocytosis 1+ RBC Morph Micro Appear ABNORMAL Sodium 138 Potassium 4.8 D Chloride 105 Carbon Dioxide 10.6 L Anion Gap 27.2 H BUN 73 H Creatinine 4.4 H* Est GFR ( Amer) TNP Est GFR (Non-Af Amer) TNP BUN/Creatinine Ratio 16.6 Glucose 218 H POC Glucose 191 H Calcium 7.7 L 04/29/16 11:59 WBC Corrected WBC (auto) RBC Hgb Hct MCV MCH MCHC Differential RDW Plt Count MPV Band Neutrophils % Neutrophils (Manual) Lymphocytes Monocytes Metamyelocytes Myelocytes Nucleated RBCs Platelet Estimate Platelet Morphology Polychromasia Anisocytosis Macrocytosis RBC Morph Micro Appear Sodium Potassium Chloride Carbon Dioxide Anion Gap BUN Creatinine Est GFR ( Amer) Est GFR (Non-Af Amer) BUN/Creatinine Ratio Glucose POC Glucose 169 H Calcium Home Medication Medication Instructions Recorded Type Amoxicillin/Potassium Clav 1 each PO BID 04/28/16 History [Amox-Clav 500-125 mg Tablet] Ascorbic Acid [Vitamin C] 500 mg PO DAILY 04/28/16 History Aspirin [Aspirin Chewable] 81 mg PO DAILY 04/28/16 History Atorvastatin Calcium [Lipitor] 20 mg PO HS 04/28/16 History Calcium Carbonate 600 mg PO DAILY 04/28/16 History Cholecalciferol (Vitamin D3) 5,000 unit PO DAILY 04/28/16 History [Vitamin D3] Darbepoetin Deo in Polysorbat 100 mcg IJ QTHUR 04/28/16 History [Aranesp] Ferrous Sulfate [Iron] 325 mg PO BID 04/28/16 History Furosemide [Lasix] 20 mg PO BID 04/28/16 History Insulin Detemir [Levemir] 4 unit SQ QAM 04/28/16 History Insulin Lispro [Humalog] 100 unit SQ TID 04/28/16 History Megestrol Acetate [Megace] 400 mg PO BID 04/28/16 History Metoprolol Tartrate [Lopressor] 25 mg PO HS 04/28/16 History Midodrine HCl 5 mg PO DAILY 04/28/16 History Mirtazapine [Mirtazapine*] 15 mg PO HS 04/28/16 History NIFEdipine [Procardia XL] 30 mg PO DAILY 04/28/16 History Pantoprazole [Protonix] 40 mg PO DAILY 04/28/16 History Prednisone [Deltasone] 20 mg PO DAILY 04/28/16 History Saccharomyces Boulardii [Florastor] 250 mg PO BID 04/28/16 History Vit B Cmplx 3/FA/Vit C/Biotin 1 tab PO DAILY 04/28/16 History [Nephro-Desiree Rx] Current Medications Generic Name Dose Route Start Last Admin Trade Name Freq PRN Reason Stop Dose Admin Aspirin 81 mg 04/29/16 09:00 04/29/16 09:32 Aspirin Chewable PO 06/28/16 08:59 81 mg DAILY PAULA Administration Atorvastatin Calcium 20 mg 04/28/16 21:00 04/28/16 22:56 Lipitor PO 06/27/16 20:59 20 mg HS PAULA Administration Calcium Carbonate 600 mg 04/29/16 09:00 04/29/16 12:08 Calcium Carb PO 06/28/16 08:59 600 mg DAILY PAULA Administration Dextrose 50 ml 04/28/16 23:05 04/28/16 23:16 D50w IVP 06/27/16 23:04 50 ml PRN PRN Administration Blood Glucose less than 70 Dextrose 18.75 gm 04/28/16 23:05 Glutose 40% PO 06/27/16 23:04 PRN PRN Blood Glucose less than 70 Epoetin Deo 5,000 units 04/29/16 09:30 Epogen SUBQ 06/28/16 09:29 TuThSa PAULA Glucagon 1 mg 04/28/16 23:20 04/28/16 23:39 Glucagen IM 06/27/16 23:19 1 mg PRN PRN Administration HYPOGLYCEMIA Metronidazole 500 mg in 100 mls @ 100 mls/hr 04/28/16 21:00 04/29/16 12:14 Flagyl IV 06/27/16 20:59 100 mls/hr Q8HR PAULA Administration Piperacillin Sod/Tazobactam 50 mls @ 100 mls/hr 04/29/16 13:00 04/29/16 12:13 Sod 2.25 gm/ Sodium Chloride IV 06/28/16 12:59 100 mls/hr Q8HR PAULA Administration Dextrose/Sodium Chloride 1,000 mls @ 50 mls/hr 04/29/16 07:59 04/29/16 09:40 D5-0.45ns IV 06/28/16 07:58 50 mls/hr .Q20H PAULA Administration Insulin Aspart 0 units 04/29/16 10:07 04/29/16 12:00 Novolog Insulin Sliding Scale SUBQ 06/28/16 08:14 3 units Q4HR PAULA Administration Protocol Metoprolol Tartrate 25 mg 04/28/16 21:00 04/28/16 22:57 Lopressor PO 06/27/16 20:59 Not Given HS PAULA Midodrine 5 mg 04/29/16 09:00 04/29/16 09:36 Proamatine PO 06/28/16 08:59 5 mg DAILY PAULA Administration Mirtazapine 15 mg 04/28/16 21:00 04/28/16 22:56 Remeron PO 06/27/16 20:59 15 mg HS PAULA Administration Protocol Miscellaneous 100 mcg 04/28/16 19:30 Darbepoetin Deo In Polysorbat [Aranesp] IJ 06/27/16 19:29 QTHUR PAULA Miscellaneous 1 ea 04/29/16 04:00 Zosyn Iv Per Pharmacy MC 06/28/16 03:59 PRN PRN PROTOCOL Morphine Sulfate 2 mg 04/29/16 10:50 04/29/16 11:48 Morphine IVP 06/28/16 10:49 2 mg Q3H PRN Administration Severe Pain Nifedipine 30 mg 04/29/16 09:00 04/29/16 09:00 Procardia Xl PO 06/28/16 08:59 Not Given DAILY PAULA Ondansetron HCl 4 mg 04/29/16 03:59 Zofran IV 06/28/16 03:58 Q4H PRN Nausea / Vomiting Pantoprazole Sodium 40 mg 04/29/16 09:00 04/29/16 09:39 Protonix PO 06/28/16 08:59 40 mg DAILY PAULA Administration Prednisone 20 mg 04/29/16 09:00 04/29/16 09:39 Deltasone PO 06/28/16 08:59 20 mg DAILY PAULA Administration Vancomycin HCl 250 mg 04/28/16 18:55 04/29/16 12:25 Vancomycin Oral PO 06/27/16 18:54 250 mg Q6HR PAULA Administration Review of Systems: A 12 point ROS was reviewed with the pertinent positive and negatives noted in the HPI. Past Medical History CKD, COPD, CAD, HTN, DM2, Bladder CA. Social History Lives at the SNF, no history of smoking, alcohol or drug abuse. Family Medical History Noncontributory. Physical Exam: VITALS: as above. General: Comfortable, cachectic. No Acute Distress HEENT: Head is normocephalic, atraumatic on inspection. Oral cavity: moist, pink tongue. Eyes pallor is present. EOMI Bilaterally, PERRLA Bilaterally, Neck: Supple, no JVD. No use of accessory neck muscles. Respiratory: Clear to Auscultate Bilaterally. Cardio: +S1/S2 Auscultated, RRR, no murmurs/rubs/gallops noted. Abdominal: Soft, Nondistended, Nontender to palpation x 4 quadrants. lower abdomen is also cold. Extremities: No Edema noted in the lower extremities. The legs are ice cold, on touch. Right big toe stage II ulcer at the distal end with gangrenous/cyanotic changes. both feet are ice cold. mild mottling of the lower extremity skin. Neurological: Alert and Oriented x3, Cranial Nerves II-XII intact bilaterally, No Focal Deficits noted. Assessment/Plan: 1. Leukocytosis. reactive versus cholecytitis. r/o pneumonia. 2. Pneumonia. 3. Cholecytitis. 4. AAA. 5. Gangrenous ulcer at the right big toe. 6. Abdominal pain 2/2 AAA. 7. PAD. 8. 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 Recommedations: Will continue vanco IV and change zosyn to meropenem. Sepsis w/u. Hida scan, adb u/S. check stool for Cdiff. Poor prognosis. Thank you, Dr Natalya Guillen for involving me in taking care of this patient. Signed, Cash Hernandez M.D. [phone]
--- NOTE | 2016-04-29 16:17 | Admit Criteria Form ---
Admit Criteria Forms - Admit Criteria Diagnosis: ABDOMINAL PAIN Clinical Indications for Admission to Inpatient Care (Place 'X' for any and all applicable criteria): Admission is indicated for ANY ONE of the following(1)(2)(3)(4)(5): [X ]I. Inpatient admission required rather than observation care (Also use Abdominal Pain: Observation Care, as appropriate) because of ANY ONE of the following: [ ]a) Severe pain requiring acute inpatient management [ ]b) Identification of etiology/finding that requires inpatient care (eg, aortic dissection, free air) [ ]c) Absent bowel sounds with complete ileus(6) [ ]d) Suspected toxic megacolon [X ]e) Severe electrolyte abnormalities requiring inpatient care [ ]f) High fever or infection requiring inpatient admission as indicated by ANY ONE of following(7)(8): [ ] i) Appropriate outpatient or observational care antimicrobial treatment unavailable, not effective, or not feasible [ ] ii) Documented bacteremia [ ] iii) Temperature > 104.9 degrees F (oral) [ ] iv) T >103.1 F (oral) or < 96.8 F(rectal) that does not respond to all emergency treatment measures [ ]g) Signs of intestinal obstruction [B] [ ]h) Hemodynamic instability [ ]i) IV fluid to replace significant ongoing losses (greater than 3 L/m2 per day) (12)(13) [ ]j) Percutaneous or open drainage (eg, abscess, biliary tract ) procedures [ ]k) Parenteral nutrition regimen that must be implemented on inpatient basis [ ]l) Other condition,treatment or monitoring requiring inpatient admission. [ ]II. Peritoneal signs present [ ]III. Surgery needed that cannot be performed on an ambulatory basis. [ ]IV. Evaluation requires patient to not eat or drink for extended period ( eg, more than 24 hours). [ ]V. Contraindications and/or Inappropriate clinical situations for Observational Care in patients with abdominal pain, when ANY ONE of the following is required: [ ]a) Thorough evaluation is required to prevent catastrophic events due to delays in diagnosing (e.g.Mesenteric ischemia) 1,3 [ ]b) Patient with severe pathology or with chronic symptoms unlikely to improve in the ED stay (3) [ ]. General contraindications and/or Inappropriate clinical situations for Observational Care in patients with abdominal pain, when ANY ONE of the following is required: [ ]a) Prediction of prolongation of LOS based on ANY ONE of the following may be considered as a contraindication for observational care 2, 3, 4, 5, 6, 7, 8, 9, 10, 11 [ ]i) Age > 65 yrs. [ ]ii) Patient arriving by ambulance [ ]iii) Patient with high acuity [ ]iv) Patient requiring vital sign monitoring [ ]v) Patient on IV medication [ ]b) Systolic blood pressures 180mmHg 3,12 [ ]c) Patient with altered mental status including delirium and other alteration of consciousness, (3) [ ]d) Patient whose discharge disposition will be to a assisted home or rehabilitation home should not be managed in Emergency Department Observation Unit. CMS rule requires 3 days hospital stay before such placement.3,13 [ ]e) Patient with failure to thrive due to broad array of etiologies 3,16,17 [ ]f) Inability to ambulate 3,14 Extended stay beyond goal length of stay may be needed for(2)(3): [ ]a) Persistent abdominal pain with suspected intra-abdominal process [ ]b) Diagnosed condition requiring continued stay (e.g., pancreatitis, complicated diverticulitis) [ ]c) Surgery (e.g., colectomy) The original [facility] content created by [employer] has been revised. The portions of the content which have been revised are identified through the use of italic text or in bold, and [employer] has neither reviewed nor approved the modified material.All other unmodified content is copyright [employer] [employer]. Please see references footnoted in the original [facility] edition 2016 Admit Criteria Met?: Yes
[2016-04-29] MEDS: Atorvastatin Calcium 10 MG TAB PO SCH (20:25)
--- NOTE | 2016-04-29 22:14 | History & Physical ---
CHIEF COMPLAINT: Abdominal pain. HISTORY OF PRESENT ILLNESS: This is a 76-year-old female with underlying history of diabetes, hyperlipidemia, atherosclerotic vascular disease and end-stage renal disease on hemodialysis who was evaluated in the Emergency Room at [facility] for abdominal pain and lethargy. The patient was recently diagnosed with C. diff colitis and was treated for oral vancomycin and flagyl. The patient recently started having abdominal pain and loose stool again. She started feeling very weak and lethargic and having poor p.o. intake. So, the patient was directed to the Emergency Room. Upon admission the patient started antibiotics . GI and infectious disease specialist were consulted. The patient had a CT of abdomen and pelvis was done which was suspicious for acute cholecystitis. Abdominal ultrasound was ordered for today, which was inconclusive. The patient is still having persistent abdominal pain. no vomiting and no bloody stool reported. No fever reported since admissions. The patient denies any chest pain. No shortness of breath or dizziness and no palpitations. PAST MEDICAL HISTORY: End-stage renal disease, on hemodialysis, insulin-dependent diabetes mellitus, abdominal aortic aneurysms, C. diff colitis and hyperlipidemia, Bladder cancer PAST SURGICAL HISTORY: No reported significant past history. FAMILY HISTORY: Noncontributory. SOCIAL HISTORY: Lives at snf facility. Heavy ex smoker recently quit. CURRENT MEDICATIONS: As per medication reconciliation list reviewed. ALLERGIES: No known drug allergy reported. REVIEW OF SYSTEMS: As per HPI. Other 12-point system appears negative. PHYSICAL EXAMINATION: VITAL SIGNS: Temperature 96.3, pulse 89, respiration 17, blood pressure 97/58 and oxygen saturation is 94% on room air. GENERAL APPEARANCE: The patient does not seem in acute distress. HEART: S1 and S2 normal. LUNGS: Clear to auscultation bilaterally. ABDOMEN: Soft. Epigastric tenderness noted. No guarding and no rigidity noted. No rebound tenderness noted. NEUROLOGIC: The patient is awake and alert, moves all extremities. No focal deficit noted EXTREMITIES: Negative for edema. No calf tenderness. AVAILABLE LABORATORY DATA: WBC is 41.1, hemoglobin is 10.8, hematocrit 32.0 and platelet is 50. Sodium is 138, potassium 4.8, BUN 73, creatinine 1.4. Sugar is 169. AST 23 and ALT 17. Troponin 0.21. Calcium is 7.7. Alkaline phosphatase 79. IMAGING STUDIES: CT abdomen and pelvis, dilated gallbladder with questionable pericholecystic fluid noted. Abdominal aortic aneurysm is 4.0 c.m. No other significant findings noted. ASSESSMENT: 1. Sepsis most likely intra abd source. 2. Abdominal pain, rule out cholecystitis. r/o mesenteric ischemia 3. Diarrhea, possible C. diff colitis. 4. End-stage renal disease on hemodialysis. 5. Hypertension. 6. Hyperlipidemia. 7. Abdominal aortic aneurysm. 8. Thrombocytopenia possible due to underlying sepsis. 9. Generalized debility. 10. History of bladder cancer 11. severe hypoglycemia- better 12. Elevated troponin possibly related to sepsis 13. Insulin dependant Diabetes mellitus PLAN: The patient is currently admitted to ICU. The patient is currently n.p.o., IV fluid is being given. The patient is scheduled for stat HIDA scan today. Case discussed with general surgery. If HIDA is positive, we will discuss with family for cholecystectomy. The patient is receiving IV Flagyl, Zosyn and oral vancomycin. Blood sugar has been monitored every 4 hours. Dextrose IV fluid has been given. IV morphine for pain control has been given. Hemodialysis per Nephrology recommendations. GI, ID, General Surgery and Nephrology is on the case. We will follow up on further the patient's pending workup. Discussed with family at bedside regarding the patient's conditions and plan of care discussed with the nursing staff. PROGNOSIS: The patient's prognosis is guarded. JOB# [id number] KEHINDE
[2016-04-29] MEDS ORDERED: Albumin 25% 25gm/100mL 25 GM/100 ML BTL IV ONE (23:00)
[2016-04-30] MEDS: Vancomycin HCL 250 mg /10mL UDC PO SCH (00:51)
[2016-04-30] MEDS: Morphine Sulfate 2 mg/mL 1mL Syr IVP PRN (01:40)
[2016-04-30] MEDS ORDERED: Albumin 25% 25gm/100mL 25 GM/100 ML BTL IV ONE ×2 (04:00→06:25)
[2016-04-30] MEDS: INSULIN ASPART SLIDING SCALE 100 UNITS/ML UNIT SUBQ SCH ×2 (04:00→04:37)
--- NOTE | 2016-04-30 04:15 | Consultation ---
NEPHROLOGY CONSULTATION REASON FOR CONSULTATION: Dialysis status. 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 She missed dialysis yesterday secondary to abdominal pain and presented to the Emergency Room, sent from [facility] for further evaluation. Upon admission, she was found to have leukocytosis of 22.[address] scan of the abdomen and pelvis revealed known abdominal aortic aneurysm with maximum diameter of 4 cm, questionable changes of chronic segmental dissection, dilated gallbladder with questionable pericholecystic fluid, compression fracture of the L4 body infiltrate in the left lower lobe with pleural thickening of the left lower hemithorax, pneumonia cannot be excluded. She was subsequently admitted for further evaluation and has since been admitted to the ICU and is on IV antibiotics. She still has complaints of abdominal pain. PAST MEDICAL HISTORY: 1. 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 2. Abdominal aortic aneurysm. 3. Type 2 diabetes mellitus with renal and hyperlipidemia manifestations. 4. Hypertension. 5. History of bladder cancer per ER report. PAST SURGICAL HISTORY: Right IJ Perm-A-Cath placement. SOCIAL HISTORY: Former smoker. Denies current alcohol or illicit drug use. Currently a [facility] facility resident. FAMILY HISTORY: No family history of kidney disease. REVIEW OF SYSTEMS: CONSTITUTIONAL: No fever or chills. CARDIOVASCULAR: No chest pain or palpitations. PULMONARY: No shortness of breath or cough. GASTROINTESTINAL: Epigastric pain. GENITOURINARY: No urine output secondary dialysis status. MUSCULOSKELETAL: No acute joint pain or tenderness. PHYSICAL EXAMINATION: VITAL SIGNS: Temperature 97.8, heart rate 100, blood pressure 122/64, respiratory rate 21, oxygen saturation 96%. GENERAL: The patient awake, alert, in no apparent distress. CHEST: Right IJ Perm-A-Cath. LUNGS: Clear. ABDOMEN: Epigastric discomfort. EXTREMITIES: No lower extremity edema. DIAGNOSTIC DATA: White blood cell count is up to 41.1 from 22.5, hemoglobin is 10.8, down from 12, platelet count is pending, 36% bands. Sodium 139, potassium 2.5, chloride 101, CO2 21.8, BUN 60, glucose 43, calcium 8.2, albumin 2.7. Troponin 0.21. TSH 1.28. ASSESSMENT AND RECOMMENDATIONS: The patient is a 76-year-old female with: 1. 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 The patient missed dialysis yesterday. Her usual schedule is Sunday, Sunday, and Sunday. However, she will be dialyzed today to optimize volume control and clearance. 2. Hypokalemia, stable. The patient received potassium repletion yesterday. Repeat potassium is pending. We will dialyze with a higher potassium bath. 3. Hypoglycemia, improved. Continue supportive care. 4. Systemic inflammatory response syndrome in the setting of abdominal pain and leukocytosis with bandemia, tachycardia and respirations greater than 20. Continue antibiotic support. 5. Hypertension, stable. Continue metoprolol and nifedipine. 6. Type 2 diabetes mellitus, long-term insulin use, stable. Continue insulin coverage. Monitor closely given recent hypoglycemia. 7. Hyperlipidemia as manifestation of diabetes, stable. Continue statin. 8. Anemia of chronic kidney disease, stable. Initiate Epogen therapy. 9. Abdominal pain in the setting of known Aortic Aneurysm, stable. Continue pain management, follow-up GI and surgery recommendations. Plan of care was discussed with the RN and the patient as well as [facility]. Thank you, Dr. Guillen for allowing me to participate in the care of this patient. I will continue to follow with you. JOB# [id number] KEHINDE
[2016-04-30] MEDS: metroNIDAZOLE 500mg/NS 100mL 500 MG/100 ML BAG IV SCH (04:38)
[2016-04-30] MEDS: D5-0.45NS 1,000 ML IV SCH (04:54)
[2016-04-30] MEDS: Dextrose 50% 50 mL Abboject IVP PRN (05:05)
[2016-04-30 06:42] LABS: HEMATOCRIT 24.3 % (35.0-45.0); MEAN CORPUSCULAR HEMOGLOBIN 36.5 pg (27.0-31.0); MEAN CORPUSCULAR HGB CONC 33.5 pg (28.0-36.0); MEAN PLATELET VOLUME 8.9 fl; RED BLOOD COUNT 2.23 Mil/cmm (3.80-5.20); RED CELL DISTRIBUTION WIDTH 19.8 % (11.5-20.0)
[2016-04-30 06:51] LABS: AMYLASE SERUM 473 U/L (29-103); ANION GAP 23.7 (7.0-16.0); BUN - UREA NITROGEN 27 mg/dL (7-25); BUN/CREATININE RATIO 12.9; CALCIUM SERUM 7.4 mg/dL (8.6-10.3); CARBON DIOXIDE 16.2 mEq/L (21.0-31.0); CHLORIDE 108 mEq/L (98-107); CREATININE - SERUM 2.1 mg/dL (0.6-1.2); LIPASE 79 U/L (11-82); POTASSIUM SERUM 3.9 mEq/L (3.5-5.1); SODIUM SERUM 144 mEq/L (136-145)
[2016-04-30 06:58] LABS: GLUCOSE 227 mg/dL (70-105)
[2016-04-30 07:11] LABS: HEMOGLOBIN 8.1 gm/dL (11.7-16.1); PLATELET COUNT 35 Th/cmm (150-400); WHITE BLOOD COUNT 43.2 Th/cmm (4.8-10.8)
--- NOTE | 2016-04-30 08:57 | Diagnostic Imaging Report ---
Abdominal ultrasound HISTORY: Pain Exam is limited due to considerable bowel gas. There is incomplete visualization of the liver with no obvious focal lesions. There is a markedly distended gallbladder. However, no definite calculi are seen. No biliary dilatation. The pancreas cannot be seen due to bowel gas. The right kidney appears normal. The left kidney is diminished in size (7.5 x 4.3 x 4.5 cm). No focal lesions or hydronephrosis. Incomplete visualization the spleen that appears to be normal in size. IMPRESSION: 1. Vertically Limited/suboptimal exam due to bowel gas 2. Markedly distended gallbladder. No definite calculi are seen. The significance should be correlated clinically.
--- NOTE | 2016-04-30 09:01 | Diagnostic Imaging Report ---
Bilateral lower extremity Doppler arterial ultrasound exam HISTORY: Peripheral vascular disease, pain Sonographic sector images were obtained through the arterial systems of both legs. Associated Doppler data was obtained. The exam of the right leg demonstrates biphasic waveforms within the common femoral proximal portion of the right superficial femoral artery. Abnormal monophasic waveforms are noted within the remainder of the superficial femoral artery, popliteal, anterior tibial, and posterior tibial arteries. Definitive flow could not be documented within the right dorsalis pedis artery. Elevated velocities noted within the distal superficial femoral artery with an abnormal decrease in velocity seen through the right popliteal artery region. Sonographic sector images demonstrate mild to moderate diffuse atherosclerotic plaque to the visualized arterial system. The ankle-brachial index is normal (1.04). The exam of the left leg demonstrates abnormal monophasic waveforms within the common femoral, the majority of the superficial femoral artery, popliteal, anterior tibial, and posterior tibial arteries. Definitive flow could not be documented within the left dorsalis pedis artery. Mild to moderate atherosclerotic plaque is sonographically visualized. Elevated velocity seen in the distal portion of the superficial femoral artery. The ankle-brachial index is normal (1.37). IMPRESSION: 1. No appreciable flow can be documented within the dorsalis pedis artery regions bilaterally. The findings should be correlated clinically and with physical examination. 2. Evidence of mild to moderate diffuse bilateral atherosclerotic changes. A CT angiographic study may provide additional assessment and detail is needed.
--- NOTE | 2016-04-30 09:12 | Diagnostic Imaging Report ---
Radionuclide biliary scan (HIDA scan) HISTORY: Pain 5.0 mCi technetium labeled biliary region was used in the exam. The exam demonstrates normal hepatic uptake. There is normal hepatic clearance. Normal visualization of the gallbladder. However, no appreciable bowel activity is seen at 90 minutes. In the absence of sonographically demonstrated biliary dilatation. Etiology is uncertain. IMPRESSION: 1. Normal visualization of the gallbladder 2. No appreciable bowel activity seen through 90 minutes. In the absence of sonographically demonstrated biliary dilatation, etiology is uncertain. Clinical correlation is needed.
--- NOTE | 2016-04-30 09:54 | General Progress Note ---
Subjective - Review of Systems Service Date: 04/30/16 Subjective: ER Physician Pronounciation Note: Called to pronounce pt as she just . On exam, pupils were fixed, dilated , and nonreactive. No palpable carotid pulses. No auscultable cardiac sounds. No spontaneous respiration. Pt was pronounced at 0945. Pt's sister was at bedside. Condolences were extended. Pt's attending physician is to be notified per nursing staff regarding pt's demise. Objective - Results Result Diagrams: 04/30/16 06:15 04/30/16 06:15 Recent Labs: Laboratory Last Values WBC 43.2 Th/cmm (4.8-10.8) H* 04/30/16 06:15 Corrected WBC (auto) 37.0 Th/cmm (4.8-10.8) H* 04/29/16 08:15 RBC 2.23 Mil/cmm (3.80-5.20) L 04/30/16 06:15 Hgb 8.1 gm/dL (11.7-16.1) L D 04/30/16 06:15 Hct 24.3 % (35.0-45.0) L 04/30/16 06:15 MCV 106.8 fl (81-100) H 04/29/16 08:15 MCH 36.5 pg (27.0-31.0) H 04/30/16 06:15 MCHC Differential 33.5 pg (28.0-36.0) 04/30/16 06:15 RDW 19.8 % (11.5-20.0) 04/30/16 06:15 Plt Count 35 Th/cmm (150-400) L D 04/30/16 06:15 MPV 8.9 fl 04/30/16 06:15 Band Neutrophils % 33 % (0-10) H 04/29/16 08:15 Neutrophils (Manual) 45 % (40-80) 04/29/16 08:15 Lymphocytes 7 % (20-50) L 04/29/16 08:15 Monocytes 8 % (2-10) 04/29/16 08:15 Eosinophils 0 % (0-5) 04/28/16 12:47 Metamyelocytes 6 % (0-0) H 04/29/16 08:15 Myelocytes 1 % 04/29/16 08:15 Nucleated RBCs 11.0 % (0-0) H 04/29/16 08:15 Platelet Estimate DECREASED PLATELETS (NORMAL) 04/29/16 08:15 Platelet Morphology GIANT PLATELETS SEEN (NORMAL) 04/29/16 08:15 Polychromasia 2+ 04/29/16 08:15 Anisocytosis 1+ 04/29/16 08:15 Macrocytosis 1+ 04/29/16 08:15 RBC Morph Micro Appear ABNORMAL (NORMAL) 04/29/16 08:15 PT 11.0 SECONDS (9.5-11.5) 04/28/16 12:47 INR 1.10 (0.5-1.4) 04/28/16 12:47 PTT (Actin FS) 25.6 SECONDS (26.0-38.0) L 04/28/16 12:47 Sodium 144 mEq/L (136-145) 04/30/16 06:15 Potassium 3.9 mEq/L (3.5-5.1) 04/30/16 06:15 Chloride 108 mEq/L (98-107) H 04/30/16 06:15 Carbon Dioxide 16.2 mEq/L (21.0-31.0) L 04/30/16 06:15 Anion Gap 23.7 (7.0-16.0) H 04/30/16 06:15 BUN 27 mg/dL (7-25) H 04/30/16 06:15 Creatinine 2.1 mg/dL (0.6-1.2) H 04/30/16 06:15 Est GFR ( Amer) TNP 04/30/16 06:15 Est GFR (Non-Af Amer) TNP 04/30/16 06:15 BUN/Creatinine Ratio 12.9 04/30/16 06:15 Glucose 227 mg/dL (70-105) H 04/30/16 06:15 POC Glucose 184 MG/DL (70 - 105) H 04/30/16 07:46 Hemoglobin A1c % 6.8 % (4.0-6.0) H 04/28/16 12:47 Whole Bld Lactic Acid 11.26 mmol/L (0.60-2.00) H* 04/30/16 06:15 Calcium 7.4 mg/dL (8.6-10.3) L 04/30/16 06:15 Total Bilirubin 0.5 mg/dL (0.3-1.0) 04/28/16 12:47 AST 23 U/L (13-39) 04/28/16 12:47 ALT 17 U/L (7-52) 04/28/16 12:47 Alkaline Phosphatase 79 U/L (34-104) 04/28/16 12:47 Troponin I 0.21 ng/mL (0.01-0.05) H* 04/28/16 12:47 Total Protein 5.3 gm/dL (6.0-8.3) L 04/28/16 12:47 Albumin 2.7 gm/dL (3.7-5.3) L 04/28/16 12:47 Globulin 2.6 gm/dL 04/28/16 12:47 Albumin/Globulin Ratio 1.0 (1.0-1.8) 04/28/16 12:47 Triglycerides 216 mg/dL (<150) H 04/28/16 12:47 Cholesterol 86 mg/dL (<200) 04/28/16 12:47 LDL Cholesterol Direct 19 mg/dL (75-193) L 04/28/16 12:47 HDL Cholesterol 30 mg/dL (23-92) 04/28/16 12:47 Amylase 441 U/L (29-103) H 04/30/16 06:15 Lipase 79 U/L (11-82) 04/30/16 06:15 TSH 1.28 uIU/ml (0.34-5.60) 04/28/16 12:47 - Physical Exam Vitals and I&O: Vital Signs Temp 97.4 F 04/30/16 04:00 Pulse 106 04/30/16 08:41 Resp 24 04/30/16 08:41 BP 84/34 04/30/16 06:00 Pulse Ox 80 04/30/16 08:41 Active Medications: Current Medications Aspirin (Aspirin Chewable) 81 mg PO DAILY PAULA Stop: 06/28/16 08:59 Last Admin: 04/29/16 09:32 Dose: 81 mg Atorvastatin Calcium (Lipitor) 20 mg PO HS PAULA Stop: 06/27/16 20:59 Last Admin: 04/29/16 20:25 Dose: Not Given Calcium Carbonate (Calcium Carb) 600 mg PO DAILY PAULA Stop: 06/28/16 08:59 Last Admin: 04/29/16 12:08 Dose: 600 mg Dextrose (D50w) 50 ml IVP PRN PRN PRN Reason: Blood Glucose less than 70 Stop: 06/27/16 23:04 Last Admin: 04/30/16 05:05 Dose: 50 ml Dextrose (Glutose 40%) 18.75 gm PO PRN PRN PRN Reason: Blood Glucose less than 70 Stop: 06/27/16 23:04 Epoetin Deo (Epogen) 5,000 units SUBQ TuThSa [facility] Stop: 06/28/16 09:29 Last Admin: 04/29/16 23:24 Dose: 5,000 units Glucagon (Glucagen) 1 mg IM PRN PRN PRN Reason: HYPOGLYCEMIA Stop: 06/27/16 23:19 Last Admin: 04/28/16 23:39 Dose: 1 mg Metronidazole (Flagyl) 500 mg in 100 mls @ 100 mls/hr IV Q8HR [facility] Stop: 06/27/16 20:59 Last Admin: 04/30/16 04:38 Dose: 100 mls/hr Dextrose/Sodium Chloride (D5-0.45ns) 1,000 mls @ 50 mls/hr IV .Q20H [facility] Stop: 06/28/16 07:58 Last Admin: 04/30/16 04:54 Dose: 50 mls/hr Meropenem 500 mg/ Sodium (Chloride) 100 mls @ 100 mls/hr IV Q24H [facility] Stop: 06/28/16 14:44 Last Admin: 04/29/16 14:45 Dose: 100 mls/hr Norepinephrine Bitartrate 4 mg (/ Dextrose) 254 mls @ 19.05 mls/hr IV TITR PRN ; Protocol; 5 MCG/MIN PRN Reason: BP MAINTENANCE (PER PROTOCOL) Stop: 06/29/16 00:48 Norepinephrine Bitartrate 4 mg (/ Dextrose) 254 mls @ 15.24 mls/hr IV TITR PRN ; Protocol; 4 MCG/MIN PRN Reason: BP MAINTENANCE (PER PROTOCOL) Stop: 06/29/16 09:40 Insulin Aspart (Novolog Insulin Sliding Scale) 0 units SUBQ Q4HR PAULA PRN Reason: Protocol Stop: 06/28/16 08:14 Last Admin: 04/30/16 04:37 Dose: Not Given Metoprolol Tartrate (Lopressor) 25 mg PO HS [facility] Stop: 06/27/16 20:59 Last Admin: 04/30/16 00:52 Dose: Not Given Midodrine (Proamatine) 5 mg PO DAILY [facility] Stop: 06/28/16 08:59 Last Admin: 04/29/16 09:36 Dose: 5 mg Mirtazapine (Remeron) 15 mg PO HS PAULA PRN Reason: Protocol Stop: 06/27/16 20:59 Last Admin: 04/30/16 02:01 Dose: Not Given Miscellaneous (Darbepoetin Deo In Polysorbat [Aranesp]) 100 mcg IJ QTHUR [facility] Stop: 06/27/16 19:29 Miscellaneous (Zosyn Iv Per Pharmacy) 1 ea MC PRN PRN PRN Reason: PROTOCOL Stop: 06/28/16 03:59 Morphine Sulfate (Morphine) 2 mg IVP Q3H PRN PRN Reason: Severe Pain Stop: 06/28/16 10:49 Last Admin: 04/30/16 01:40 Dose: 2 mg Nifedipine (Procardia Xl) 30 mg PO DAILY [facility] Stop: 06/28/16 08:59 Last Admin: 04/29/16 09:00 Dose: Not Given Ondansetron HCl (Zofran) 4 mg IV Q4H PRN PRN Reason: Nausea / Vomiting Stop: 06/28/16 03:58 Pantoprazole Sodium (Protonix) 40 mg PO DAILY [facility] Stop: 06/28/16 08:59 Last Admin: 04/29/16 09:39 Dose: 40 mg Prednisone (Deltasone) 20 mg PO DAILY [facility] Stop: 06/28/16 08:59 Last Admin: 04/29/16 09:39 Dose: 20 mg Vancomycin HCl (Vancomycin Oral) 250 mg PO Q6HR [facility] Stop: 06/27/16 18:54 Last Admin: 04/30/16 00:51 Dose: Not Given
--- NOTE | 2016-04-30 10:16 | General Progress Note ---
Subjective - Review of Systems Service Date: 04/30/16 Events since last encounter: patient at 0945 Subjective: consult dictated CT scan - dilated GB with pericholecystic fluid WBC high with bands PE tender RUQ plan: GB ultrasound Objective - Results Result Diagrams: 04/30/16 06:15 04/30/16 06:15 Recent Labs: Laboratory Last Values WBC 43.2 Th/cmm (4.8-10.8) H* 04/30/16 06:15 Corrected WBC (auto) 37.0 Th/cmm (4.8-10.8) H* 04/29/16 08:15 RBC 2.23 Mil/cmm (3.80-5.20) L 04/30/16 06:15 Hgb 8.1 gm/dL (11.7-16.1) L D 04/30/16 06:15 Hct 24.3 % (35.0-45.0) L 04/30/16 06:15 MCV 106.8 fl (81-100) H 04/29/16 08:15 MCH 36.5 pg (27.0-31.0) H 04/30/16 06:15 MCHC Differential 33.5 pg (28.0-36.0) 04/30/16 06:15 RDW 19.8 % (11.5-20.0) 04/30/16 06:15 Plt Count 35 Th/cmm (150-400) L D 04/30/16 06:15 MPV 8.9 fl 04/30/16 06:15 Band Neutrophils % 33 % (0-10) H 04/29/16 08:15 Neutrophils (Manual) 45 % (40-80) 04/29/16 08:15 Lymphocytes 7 % (20-50) L 04/29/16 08:15 Monocytes 8 % (2-10) 04/29/16 08:15 Eosinophils 0 % (0-5) 04/28/16 12:47 Metamyelocytes 6 % (0-0) H 04/29/16 08:15 Myelocytes 1 % 04/29/16 08:15 Nucleated RBCs 11.0 % (0-0) H 04/29/16 08:15 Platelet Estimate DECREASED PLATELETS (NORMAL) 04/29/16 08:15 Platelet Morphology GIANT PLATELETS SEEN (NORMAL) 04/29/16 08:15 Polychromasia 2+ 04/29/16 08:15 Anisocytosis 1+ 04/29/16 08:15 Macrocytosis 1+ 04/29/16 08:15 RBC Morph Micro Appear ABNORMAL (NORMAL) 04/29/16 08:15 PT 11.0 SECONDS (9.5-11.5) 04/28/16 12:47 INR 1.10 (0.5-1.4) 04/28/16 12:47 PTT (Actin FS) 25.6 SECONDS (26.0-38.0) L 04/28/16 12:47 Sodium 144 mEq/L (136-145) 04/30/16 06:15 Potassium 3.9 mEq/L (3.5-5.1) 04/30/16 06:15 Chloride 108 mEq/L (98-107) H 04/30/16 06:15 Carbon Dioxide 16.2 mEq/L (21.0-31.0) L 04/30/16 06:15 Anion Gap 23.7 (7.0-16.0) H 04/30/16 06:15 BUN 27 mg/dL (7-25) H 04/30/16 06:15 Creatinine 2.1 mg/dL (0.6-1.2) H 04/30/16 06:15 Est GFR ( Amer) TNP 04/30/16 06:15 Est GFR (Non-Af Amer) TNP 04/30/16 06:15 BUN/Creatinine Ratio 12.9 04/30/16 06:15 Glucose 227 mg/dL (70-105) H 04/30/16 06:15 POC Glucose 184 MG/DL (70 - 105) H 04/30/16 07:46 Hemoglobin A1c % 6.8 % (4.0-6.0) H 04/28/16 12:47 Whole Bld Lactic Acid 11.26 mmol/L (0.60-2.00) H* 04/30/16 06:15 Calcium 7.4 mg/dL (8.6-10.3) L 04/30/16 06:15 Total Bilirubin 0.5 mg/dL (0.3-1.0) 04/28/16 12:47 AST 23 U/L (13-39) 04/28/16 12:47 ALT 17 U/L (7-52) 04/28/16 12:47 Alkaline Phosphatase 79 U/L (34-104) 04/28/16 12:47 Troponin I 0.21 ng/mL (0.01-0.05) H* 04/28/16 12:47 Total Protein 5.3 gm/dL (6.0-8.3) L 04/28/16 12:47 Albumin 2.7 gm/dL (3.7-5.3) L 04/28/16 12:47 Globulin 2.6 gm/dL 04/28/16 12:47 Albumin/Globulin Ratio 1.0 (1.0-1.8) 04/28/16 12:47 Triglycerides 216 mg/dL (<150) H 04/28/16 12:47 Cholesterol 86 mg/dL (<200) 04/28/16 12:47 LDL Cholesterol Direct 19 mg/dL (75-193) L 04/28/16 12:47 HDL Cholesterol 30 mg/dL (23-92) 04/28/16 12:47 Amylase 441 U/L (29-103) H 04/30/16 06:15 Lipase 79 U/L (11-82) 04/30/16 06:15 TSH 1.28 uIU/ml (0.34-5.60) 04/28/16 12:47 - Physical Exam Vitals and I&O: Vital Signs Temp 97.4 F 04/30/16 04:00 Pulse 106 04/30/16 08:41 Resp 24 04/30/16 08:41 BP 84/34 04/30/16 06:00 Pulse Ox 80 04/30/16 08:41 Intake & Output 04/29/16 04/30/16 04/30/16 18:59 06:59 18:59 Intake Total 180 1061.667 Output Total 0 1000 Balance 180 61.667 Intake: Intake, IV Amount 100 1061.667 D5-0.45NS 1,000 ml @ 50 961.667 mls/hr IV .Q20H [facility]A Rx#: [id number] metroNIDAZOLE 500mg/NS 100 100 100mL 500 mg In 100 ml @ 100 mls/hr IV Q8HR [facility] Rx #:[id number] Oral 80 0 Output: Urine 0 0 Other 1000 Other: # Voids 0 # Bowel Movements 0 Stool Characteristics Liquid Brown Active Medications: Current Medications Aspirin (Aspirin Chewable) 81 mg PO DAILY [facility] Stop: 06/28/16 08:59 Last Admin: 04/29/16 09:32 Dose: 81 mg Atorvastatin Calcium (Lipitor) 20 mg PO HS [facility] Stop: 06/27/16 20:59 Last Admin: 04/29/16 20:25 Dose: Not Given Calcium Carbonate (Calcium Carb) 600 mg PO DAILY [facility] Stop: 06/28/16 08:59 Last Admin: 04/29/16 12:08 Dose: 600 mg Dextrose (D50w) 50 ml IVP PRN PRN PRN Reason: Blood Glucose less than 70 Stop: 06/27/16 23:04 Last Admin: 04/30/16 05:05 Dose: 50 ml Dextrose (Glutose 40%) 18.75 gm PO PRN PRN PRN Reason: Blood Glucose less than 70 Stop: 06/27/16 23:04 Epoetin Deo (Epogen) 5,000 units SUBQ TuTa [facility] Stop: 06/28/16 09:29 Last Admin: 04/29/16 23:24 Dose: 5,000 units Glucagon (Glucagen) 1 mg IM PRN PRN PRN Reason: HYPOGLYCEMIA Stop: 06/27/16 23:19 Last Admin: 04/28/16 23:39 Dose: 1 mg Metronidazole (Flagyl) 500 mg in 100 mls @ 100 mls/hr IV Q8HR [facility] Stop: 06/27/16 20:59 Last Admin: 04/30/16 04:38 Dose: 100 mls/hr Dextrose/Sodium Chloride (D5-0.45ns) 1,000 mls @ 50 mls/hr IV .Q20H [facility] Stop: 06/28/16 07:58 Last Admin: 04/30/16 04:54 Dose: 50 mls/hr Meropenem 500 mg/ Sodium (Chloride) 100 mls @ 100 mls/hr IV Q24H [facility] Stop: 06/28/16 14:44 Last Admin: 04/29/16 14:45 Dose: 100 mls/hr Norepinephrine Bitartrate 4 mg (/ Dextrose) 254 mls @ 19.05 mls/hr IV TITR PRN ; Protocol; 5 MCG/MIN PRN Reason: BP MAINTENANCE (PER PROTOCOL) Stop: 06/29/16 00:48 Norepinephrine Bitartrate 4 mg (/ Dextrose) 254 mls @ 15.24 mls/hr IV TITR PRN ; Protocol; 4 MCG/MIN PRN Reason: BP MAINTENANCE (PER PROTOCOL) Stop: 06/29/16 09:40 Insulin Aspart (Novolog Insulin Sliding Scale) 0 units SUBQ Q4HR [facility] PRN Reason: Protocol Stop: 06/28/16 08:14 Last Admin: 04/30/16 04:37 Dose: Not Given Metoprolol Tartrate (Lopressor) 25 mg PO HS [facility] Stop: 06/27/16 20:59 Last Admin: 04/30/16 00:52 Dose: Not Given Midodrine (Proamatine) 5 mg PO DAILY [facility] Stop: 06/28/16 08:59 Last Admin: 04/29/16 09:36 Dose: 5 mg Mirtazapine (Remeron) 15 mg PO HS [facility] PRN Reason: Protocol Stop: 06/27/16 20:59 Last Admin: 04/30/16 02:01 Dose: Not Given Miscellaneous (Darbepoetin Deo In Polysorbat [Aranesp]) 100 mcg IJ QTHUR [facility] Stop: 06/27/16 19:29 Miscellaneous (Zosyn Iv Per Pharmacy) 1 ea MC PRN PRN PRN Reason: PROTOCOL Stop: 06/28/16 03:59 Morphine Sulfate (Morphine) 2 mg IVP Q3H PRN PRN Reason: Severe Pain Stop: 06/28/16 10:49 Last Admin: 04/30/16 01:40 Dose: 2 mg Nifedipine (Procardia Xl) 30 mg PO DAILY [facility] Stop: 06/28/16 08:59 Last Admin: 04/29/16 09:00 Dose: Not Given Ondansetron HCl (Zofran) 4 mg IV Q4H PRN PRN Reason: Nausea / Vomiting Stop: 06/28/16 03:58 Pantoprazole Sodium (Protonix) 40 mg PO DAILY [facility] Stop: 06/28/16 08:59 Last Admin: 04/29/16 09:39 Dose: 40 mg Prednisone (Deltasone) 20 mg PO DAILY [facility] Stop: 06/28/16 08:59 Last Admin: 04/29/16 09:39 Dose: 20 mg Vancomycin HCl (Vancomycin Oral) 250 mg PO Q6HR [facility] Stop: 06/27/16 18:54 Last Admin: 04/30/16 00:51 Dose: Not Given
[2016-04-30 14:05] LABS: METAMYELOCYTE 5 % (0-0); MYELOCYTE 18 %; TOTAL CELLS COUNTED 100
[2016-04-30 14:06] LABS: ANISOCYTOSIS 1+; CORRECTED WBC 34.8 Th/cmm (4.8-10.8); PLATELET ESTIMATE DECREASED PLATELETS (NORMAL); PLATELET MORPHOLOGY GIANT PLATELETS SEEN (NORMAL); POLYCHROMASIA 1+
[2016-04-30 14:09] LABS: BAND NEUTROPHILE 26 % (0-10); EOSINOPHIL 0 % (0-5); NEUTROPHILS 40 % (40-80)
--- NOTE | 2016-04-30 20:39 | General Progress Note ---
Subjective - Review of Systems Service Date: 04/30/16 Subjective: DELAYED NOTE ENTRY. PATIENT SEEN AT 0830. MADE DNR BY FAMILY. STILL HAVING ABD PAIN. Objective - Results Result Diagrams: 04/30/16 06:15 04/30/16 06:15 Recent Labs: Laboratory Last Values WBC 43.2 Th/cmm (4.8-10.8) H* 04/30/16 06:15 Corrected WBC (auto) 34.8 Th/cmm (4.8-10.8) H* 04/30/16 06:15 RBC 2.23 Mil/cmm (3.80-5.20) L 04/30/16 06:15 Hgb 8.1 gm/dL (11.7-16.1) L D 04/30/16 06:15 Hct 24.3 % (35.0-45.0) L 04/30/16 06:15 MCV 109.0 fl (81-100) H 04/30/16 06:15 MCH 36.5 pg (27.0-31.0) H 04/30/16 06:15 MCHC Differential 33.5 pg (28.0-36.0) 04/30/16 06:15 RDW 19.8 % (11.5-20.0) 04/30/16 06:15 Plt Count 35 Th/cmm (150-400) L D 04/30/16 06:15 MPV 8.9 fl 04/30/16 06:15 Band Neutrophils % 26 % (0-10) H 04/30/16 06:15 Neutrophils (Manual) 40 % (40-80) 04/30/16 06:15 Lymphocytes 9 % (20-50) L 04/30/16 06:15 Monocytes 2 % (2-10) 04/30/16 06:15 Eosinophils 0 % (0-5) 04/30/16 06:15 Metamyelocytes 5 % (0-0) H 04/30/16 06:15 Myelocytes 18 % 04/30/16 06:15 Nucleated RBCs 24.0 % (0-0) H 04/30/16 06:15 Platelet Estimate DECREASED PLATELETS (NORMAL) 04/30/16 06:15 Platelet Morphology GIANT PLATELETS SEEN (NORMAL) 04/30/16 06:15 Polychromasia 1+ 04/30/16 06:15 Anisocytosis 1+ 02/12/17 06:15 Macrocytosis 2+ 04/30/16 06:15 RBC Morph Micro Appear ABNORMAL (NORMAL) 04/30/16 06:15 PT 11.0 SECONDS (9.5-11.5) 04/28/16 12:47 INR 1.10 (0.5-1.4) 04/28/16 12:47 PTT (Actin FS) 25.6 SECONDS (26.0-38.0) L 04/28/16 12:47 Sodium 144 mEq/L (136-145) 04/30/16 06:15 Potassium 3.9 mEq/L (3.5-5.1) 04/30/16 06:15 Chloride 108 mEq/L (98-107) H 04/30/16 06:15 Carbon Dioxide 16.2 mEq/L (21.0-31.0) L 04/30/16 06:15 Anion Gap 23.7 (7.0-16.0) H 04/30/16 06:15 BUN 27 mg/dL (7-25) H 04/30/16 06:15 Creatinine 2.1 mg/dL (0.6-1.2) H 04/30/16 06:15 Est GFR ( Amer) TNP 04/30/16 06:15 Est GFR (Non-Af Amer) TNP 04/30/16 06:15 BUN/Creatinine Ratio 12.9 04/30/16 06:15 Glucose 227 mg/dL (70-105) H 04/30/16 06:15 POC Glucose 184 MG/DL (70 - 105) H 04/30/16 07:46 Hemoglobin A1c % 6.8 % (4.0-6.0) H 04/28/16 12:47 Whole Bld Lactic Acid 11.26 mmol/L (0.60-2.00) H* 04/30/16 06:15 Calcium 7.4 mg/dL (8.6-10.3) L 04/30/16 06:15 Total Bilirubin 0.5 mg/dL (0.3-1.0) 04/28/16 12:47 AST 23 U/L (13-39) 04/28/16 12:47 ALT 17 U/L (7-52) 04/28/16 12:47 Alkaline Phosphatase 79 U/L (34-104) 04/28/16 12:47 Troponin I 0.21 ng/mL (0.01-0.05) H* 04/28/16 12:47 Total Protein 5.3 gm/dL (6.0-8.3) L 04/28/16 12:47 Albumin 2.7 gm/dL (3.7-5.3) L 04/28/16 12:47 Globulin 2.6 gm/dL 04/28/16 12:47 Albumin/Globulin Ratio 1.0 (1.0-1.8) 04/28/16 12:47 Triglycerides 216 mg/dL (<150) H 04/28/16 12:47 Cholesterol 86 mg/dL (<200) 04/28/16 12:47 LDL Cholesterol Direct 19 mg/dL (75-193) L 04/28/16 12:47 HDL Cholesterol 30 mg/dL (23-92) 04/28/16 12:47 Amylase 441 U/L (29-103) H 04/30/16 06:15 Lipase 79 U/L (11-82) 04/30/16 06:15 TSH 1.28 uIU/ml (0.34-5.60) 04/28/16 12:47 - Physical Exam Vitals and I&O: Vital Signs Temp 97.4 F 04/30/16 08:00 Pulse 68 04/30/16 09:15 Resp 20 04/30/16 09:15 BP 76/36 04/30/16 09:15 Pulse Ox 91 04/30/16 09:15 Intake & Output 04/30/16 04/30/16 05/01/16 06:59 18:59 06:59 Intake Total 1061.667 Output Total 1000 Balance 61.667 Intake: Intake, IV Amount 1061.667 D5-0.45NS 1,000 ml @ 50 961.667 mls/hr IV .Q20H [facility] Rx#: [id number] metroNIDAZOLE 500mg/NS 100 100mL 500 mg In 100 ml @ 100 mls/hr IV Q8HR [facility] Rx #:[id number] Oral 0 Output: Urine 0 Other 1000 Other: # Voids 0 # Bowel Movements 0 General: Moderate distress HEENT: Atraumatic Neck: Supple Cardiovascular: Regular rate Lungs: Other (RHONCHI) Abdomen: Tender, Distended (MILD) Assessment/Plan - Assessment Assessment: 1. ABD PAIN - R/O MESENTERIC ISCHEMIA VS. GALLSTONES VS. SBO VS. OTHER. 2. GALLSTONES BUT HIDA ONLY SUGGESTED POSSIBLE BILE DUCT OBSTRUCTION. 3. ESRD. 4. SEPTIC SHOCK. - Plan Plan: 1. IV ABX. 2. NPO. 3. SURGICAL F/U. 4. PROGNOSIS POOR.
[2016-05-02 03:18] LABS: HEP B CORE AB TOTAL Negative (Negative)
--- NOTE | 2016-05-09 01:05 | Discharge Summary ---
FINAL DIAGNOSES: 1. Septic shock. 2. Severe abdominal pain possibly related to underlying intraabdominal sepsis, possibly to acute mesenteric ischemia. 3. End-stage renal disease, on hemodialysis. 4. Hypertension. 5. Hyperlipidemia. 6. Recent history of C. difficile colitis. 7. Abdominal aortic aneurysm. 8. Severe thrombocytopenia related to underlying sepsis. 9. Generalized debility. 10. History of bladder cancer. 11. Severe hypoglycemia most likely secondary to sepsis. 12. Elevated troponin, possibly to underlying sepsis. 13. Insulin-dependent diabetes mellitus. HOSPITAL COURSE: This is a 76-year-old female with underlying history of severe atherosclerotic disease; history of abdominal aortic aneurysms; end-stage renal disease, on hemodialysis; diabetes; hypertension; who was evaluated at [facility] Emergency Room for severe abdominal pain, subsequently admitted for evaluation of sepsis. ID and general surgery and nephrology was consulted. Initially, the patient was admitted on tele bed. During the hospitalization, the patient was noted to have severe hypoglycemia. The patient was treated with hypoglycemia protocol. Subsequently, transferred to ICU. The patient was given IV morphine for pain control, started on appropriate IV antibiotic. ID evaluated the patient and concurred with the antibiotics. Sepsis workup included blood culture and urine cultures. GI also evaluated the patient. Initially, the patient had a CT abdomen and pelvis in Emergency Room suggestive of questionable cholecystitis. The patient underwent an abdominal ultrasound, which was non-conclusive. The patient had a stat HIDA scan done, which was negative for any acute cholecystitis. The patient was evaluated and followed by GI. The patient was given IV hydration, kept n.p.o., hemodialysis was also scheduled per nephrology recommendations. In spite of all the aggressive treatments, the patient's condition declining. The patient developed septic shock and became hypotensive so she was started on vasopressors ; also noted to have respiratory failure, the patient was on oxygen support and HHN. Gradually, the patient deteriorated and had a cardiopulmonary arrest and on April 30, 2016. Family was updated on the patient's condition, prognosis. The patient was DNR/DNI code status at the time of , family was notified. JOB# [id number] KEHINDE
== END 2016-04-30 14:05 | disposition expired | DRG 871 ==
LOC: ER 12:09 → TELE 13:50 → ICU 04-29 00:01
PROVIDERS: ADMIT Family Medicine; ATTEND Family Medicine
PROC: 02H633Z Insertion of Infusion Device into Right Atrium, Percutaneous Approach (ICD-10-PCS; 2016-04-28)
PROC: 5A1D00Z (ICD-10-PCS; principal; 2016-04-29)
DX: A41.9 Sepsis, unspecified organism (principal); N18.6 End stage renal disease; R65.21 Severe sepsis with septic shock; I13.2 Hypertensive heart and chronic kidney disease with heart failure and with stage 5 chronic kidney disease, or end stage renal disease; J18.9 Pneumonia, unspecified organism; I96 Gangrene, not elsewhere classified; R64 Cachexia; F03.90 Unspecified dementia, unspecified severity, without behavioral disturbance, psychotic disturbance, mood disturbance, and anxiety; D69.6 Thrombocytopenia, unspecified; Z68.1 Body mass index [BMI] 19.9 or less, adult; K80.10 Calculus of gallbladder with chronic cholecystitis without obstruction; I25.10 Atherosclerotic heart disease of native coronary artery without angina pectoris; J44.9 Chronic obstructive pulmonary disease, unspecified; K21.9 Gastro-esophageal reflux disease without esophagitis; M19.90 Unspecified osteoarthritis, unspecified site; E87.6 Hypokalemia; I71.4 Abdominal aortic aneurysm, without rupture; E11.22 Type 2 diabetes mellitus with diabetic chronic kidney disease; E78.5 Hyperlipidemia, unspecified; D63.1 Anemia in chronic kidney disease; E11.51 Type 2 diabetes mellitus with diabetic peripheral angiopathy without gangrene; E11.65 Type 2 diabetes mellitus with hyperglycemia; Z85.51 Personal history of malignant neoplasm of bladder; Z79.82 Long term (current) use of aspirin; Z99.2 Dependence on renal dialysis; Z66 Do not resuscitate
CPT/HCPCS: 36415-UA; 71010-TC; 76700-TC; 78226-TC; 80048-TC; 80053-TC; 80061-TC; 82150-TC; 82947-TC; 82948-90; 83036-90; 83605; 83690-TC; 84443-TC; 84484-TC; 85007-TC; 85027-TC; 85610-TC; 85730-TC; 86704-90; 86706-90; 87230-TC; 87340-90; 90799; 90937; 93005; 93925-TC; A9537; J0696; J0885; J1610; J1815; J1885; J2185; J2270; J2543; J3370; J3480; J7030; J7040; J7121; P9046; Z7610